=== PATIENT | female | born 1950 | race Caucasian/White ===

== ENCOUNTER 2017-01-10 11:13 | Inpatient (IN) ==
[2017-01-10] MEDS ORDERED: CLORAZEPATE 3.75 MG TABLET PO PRN (13:21)
[2017-01-10] MEDS ORDERED: DILTIAZEM 50 MG/10 ML VIAL IV ONE ×3 (13:23→20:25)
[2017-01-10] MEDS ORDERED: DEXTROSE 50% 25 GM/50 ML VIAL IV PRN (13:26)
[2017-01-10] MEDS ORDERED: GLUCAGON 1 MG VIAL IM PRN (13:26)
[2017-01-10] MEDS ORDERED: ENOXAPARIN 30 MG/0.3 ML SYRINGE SUBCUT SCH (13:30)
[2017-01-10 13:52] LABS: Basophils % 0.1 % (0.0-0.8); Eosinophils % 0.1 % (0.00-10.9); Hematocrit 33.8 VOL% (35.7-47.0); Hemoglobin 11.1 GM/DL (12.0-16.0); Immature Granulocytes % 0.4 %; Immature Granulocytes Absolute 0.03 #; Lymphocytes # 1.4 10*3/uL (1.4-4.0); Lymphocytes % 19.4 % (21.3-54.2); Mean Corpuscular HGB Conc 32.8 GM/DL (32-36); Mean Corpuscular Hemoglobin 31 PG (27-34); Mean Corpuscular Volume 94.9 FL (87-102); Mean Platelet Volume 13.8 FL (9.6-12.0); Monocytes # 1.4 10*3/uL (0.11-0.8); Monocytes % 19.8 % (1.7-12.7); Neutrophils # 4.3 10*3/uL (1.4-7.4); Neutrophils % 60.2 % (38.7-73.9); Platelet Count 132 T/CUMM (130-400); Red Blood Count 3.56 MC/CUMM (3.8-5.5); Red Cell Distribution Width 15.6 % (9.3-17.3); White Blood Count 7.2 T/CUMM (4-12)
--- NOTE | 2017-01-10 14:08 | EKG Report ---
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
[2017-01-10 14:09] LABS: Calcium 8.6 MG/DL (8.5-10.1); Magnesium 2.1 MG/DL (1.8-2.4); Osmolality,Calculated 296.5 MOS/KG (273-304); Potassium 4.4 MMOL/L (3.5-5.1)
[2017-01-10 14:13] LABS: Troponin I Only 0.142 NG/ML (0.00-0.045)
[2017-01-10 14:18] LABS: T4 (Thyroxine) 8.4 UG/DL (4.7-13.3); Thyroid Stimulating Hormone 0.928 uIU/ml (0.358-3.74)
--- NOTE | 2017-01-10 14:23 | XRay Report ---
XR chest 2V Date: 01/10/2017 1:14 PM History: Shortness of breath Comparison: 01/02/2017 Technique: PA and lateral chest Findings: The heart remains minimally to moderately enlarged with left ventricular prominence and uncoiling of the aorta. Chronic scarring in the lungs with stable mediastinum. Degenerative changes are noted. Impression: Stable cardiomegaly with no acute cardiopulmonary pathology identified. PROCEDURE INTERPRETED AT [facility] DEPARTMENT OF RADIOLOGY Final Report Signed by: Dr. Antonia Rubin
[2017-01-10] MEDS ORDERED: ENOXAPARIN 120 MG/0.8 ML SYRINGE SUBCUT SCH (15:00)
[2017-01-10 15:01] LABS: Lymphocytes 18 % (20-55); Platelet Estimate Decreased; Segmented Neutrophils 66 % (50-85); Total Cells Counted 100
[2017-01-10 15:02] LABS: Hypochromasia Slight
--- NOTE | 2017-01-10 16:08 | Family Practice History&Phys ---
Assessment and Plan (1) Atrial fibrillation with rapid ventricular response Status: Acute Assessment and plan: 01/10/2017 admit placed on Cardizem. Get a cardiology consult DVT prophylaxis Current Visit: Yes (2) Shortness of breath Status: Acute Assessment and plan: 01/10/2017. This is mainly with exertion. Will monitor closely O2 as needed Current Visit: Yes (3) History of CHF (congestive heart failure) Status: Acute Assessment and plan: 01/10/2017: No deepti congestive heart failure at this time Current Visit: Yes (4) Chronic hypertension Status: Acute Current Visit: Yes (5) Type 2 diabetes mellitus Status: Acute Assessment and plan: 01/10/2017: Place on sliding scale insulin start regular medicines as able Current Visit: Yes (6) Obesity due to excess calories with serious comorbidity Status: Acute Assessment and plan: 01/10/2017 this is long-standing chronic I doubt seriously she will change Current Visit: Yes (7) Hypercholesterolemia Status: Acute Assessment and plan: 01/10/2017 we will check lipid status Current Visit: Yes History of Present Illness Chief complaint: Weakness, fatigue; failed outpatient therapy History of present illness: Ms. Bain is a 66 year old female Is a pleasant lady known to me, a cardiac patient of Dr. Dr. Naidu's, came in today with weakness and lightheadedness. She was seen in the emergency room 1 week ago and tested positive for influenza and was given Tamiflu at that time. She states that for the last 4 or 5 days she has been quite weak and was concerned that her blood pressure was low causing this. Initial heart rate when she was checked and was 77 but when I checked it she was in atrial fibrillation and rate was about 130. She does not have any deepti shortness of breath but admits that she gets little shortness of breath only with exertion at this time. Her blood pressure was noted to be 100/64. EKG revealed AF with RVR. In addition her blood sugar was noted to be 320 at this time. I deferred lab in clinic to admitting her to the hospital. Her was with her and he was treated for the flu. Home Medications Medication Instructions Recorded Confirmed Type Aspirin [Ecotrin] 81 mg PO QAM 12/28/15 01/10/17 History Carvedilol [Coreg] 12.5 mg PO BID 12/28/15 01/10/17 History Folic Acid 0.8 mg PO QAM 12/28/15 01/10/17 History Furosemide Tab [Lasix Tab] 40 mg PO QAM 12/28/15 01/10/17 History Multivitamin [Multivitamins] 1 each PO QAM 12/28/15 01/10/17 History Spironolactone [Aldactone] 25 mg PO QAM 12/28/15 01/10/17 History Clorazepate [Tranxene] 3.75 mg PO BID PRN 01/02/17 01/10/17 History Magnesium Oxide [Magnesium] 400 mg PO BID 01/02/17 01/10/17 History Metformin HCl [Metformin HCl ER] 500 mg PO BID 01/02/17 01/10/17 History Pravastatin [Pravachol] 20 mg PO BEDTIME 01/02/17 01/10/17 History Sertraline [Zoloft] 50 mg PO DAILY 01/10/17 01/10/17 History Allergies Allergy/AdvReac Type Severity Reaction Status Date / Time No Known Allergies Allergy Verified 01/02/17 10:31 - Constitutional Constitutional: Present: fatigue, weakness - EENT Eyes: Absent: loss of vision Ears: Absent: decreased hearing Nose, mouth and throat: Absent: epistaxis, neck mass - Cardiovascular Cardiovascular: Present: dyspnea on exertion - Respiratory Respiratory: Absent: hemoptysis - Gastrointestinal Gastrointestinal: Absent: constipation, dysphagia - Genitourinary Genitourinary: Absent: urinary frequency - Musculoskeletal Musculoskeletal: Absent: arthralgias - Neurological Neurological: Absent: confusion, focal weakness - Psychiatric Psychiatric: Absent: anxiety, panic attacks - Endocrine Endocrine: Absent: cold intolerance Medical,Surgical,& Family Hx - Medical History Cardio: History of: Cardiac Dysrhythmia (afib), CHF, Hypertension Endocrine: History of: Diabetes Mellitus (NIDDM), Dyslipidemia Gastrointestinal: History of: GERD, Gastrointestinal Bleed, GI Problems ( diarrhea) - Surgical History Cardiac Surgeries: Patient Denies: Femoral-Popliteal Bypass Graft, Cardiac Catheterization, Cardiac Surgery, Carotid Endarterectomy, Internal Defibrillator, Vascular Access Devices HEENT Surgeries: Patient denies: Carotid Endarterectomy Abdominal Surgeries: Patient denies: Abdominal Surgery, Cholecystectomy, Colonoscopy, EGD, Splenectomy Reproductive Surgeries: Surgical HX of;: Hysterectomy - Family History Family History: Reports;: Family Diabetes, Family Hypertension - Social History Smoking Status: Never smoker Frequency of Alcohol Use: None Type of Drug Use: None Exam - Constitutional Vitals: Period Temp Pulse Resp BP Sys/Gama Pulse Ox Last 24 Hr 97.1 F 138-163 20-20 91-117/58-82 97-98 Exam: Generally a very obese female with a BMI of 45.5. She is alert and oriented and answers all questions appropriately and is very pleasant to talk with. Not having any headaches but does have some lightheadedness. No difficulty swallowing. No deepti chest pain. Mild shortness of breath particularly with exertion. No specific abdominal pain suprapubic swelling or leg swelling. HEENT neck supple trachea midline oropharynx negative, pupils equal reactive to light CV rate is fast with a rapid ventricular response. Lungs few basilar rales clear otherwise I do not appreciate any significant wheezing at present. Abdomen soft nondistended she has been having good bowel and bladder function Neurologically fully intact although she is very weak Results - Labs CBC & BMP: 01/10/17 13:38 01/10/17 13:38
[2017-01-10] MEDS: INSULIN REGULAR 100 UNIT/ML SUBCUT SCH ×2 (16:59→21:39)
[2017-01-10 17:08] LABS: Troponin I Only 0.147 NG/ML (0.00-0.045)
[2017-01-10] MEDS ORDERED: DIGOXIN 0.5 MG/2 ML AMP IV ONE (18:05)
[2017-01-10] MEDS ORDERED: ACETAMINOPHEN 325 MG TABLET PO PRN (18:31)
[2017-01-10] MEDS ORDERED: ONDANSETRON 4 MG/2 ML VIAL IV PRN (18:32)
--- NOTE | 2017-01-10 18:49 | Cardiology Consult Note ---
Assessment and Plan - Time spent with patient Time spent with patient: Greater than 30 minutes (due to assessment, plan, and documentation) (1) Atrial fibrillation with rapid ventricular response Status: Acute Assessment and plan: SEE PLAN OF CARE LISTED BELOW. Current Visit: Yes (2) Shortness of breath Status: Acute Assessment and plan: SEE PLAN OF CARE LISTED BELOW. Current Visit: Yes (3) History of CHF (congestive heart failure) Status: Chronic Assessment and plan: SEE PLAN OF CARE LISTED BELOW. Current Visit: Yes (4) Chronic hypertension Status: Chronic Assessment and plan: SEE PLAN OF CARE LISTED BELOW. Current Visit: Yes (5) Type 2 diabetes mellitus Status: Chronic Assessment and plan: SEE PLAN OF CARE LISTED BELOW. Current Visit: Yes (6) Obesity due to excess calories with serious comorbidity Status: Chronic Assessment and plan: SEE PLAN OF CARE LISTED BELOW. Current Visit: Yes (7) Hypercholesterolemia Status: Chronic Assessment and plan: SEE PLAN OF CARE LISTED BELOW. Current Visit: Yes (8) Cardiomyopathy Status: Chronic Assessment and plan: SEE PLAN OF CARE LISTED BELOW. Current Visit: Yes History of Present Illness - Data of Consult Patient: known to practice within the last 3 years (FOLLOWED BY DR. CARMEN) Consult date: 01/10/17 Requesting Physician: Daniel Schulz Primary care physician: Daniel Schulz - Consult Narrative Reason for consult: AFIB W/ RVR History of present illness: CARPENTER'S ASSISTANT: DR. CARMEN PCP: DR. DANIEL SCHULZ Ms. Bain is a 66 year old female with history of hypertension, type 2 diabetes, congestive heart failure, hypercholesterolemia, cardiomyopathy , hypomagnesemia, chronic renal insufficiency. Risk factors are significant for : Diabetes, hypertension, obesity, sedentary lifestyle. She is a lifelong non- smoker. Ms. Bain was directly admitted to the hospital today by Dr. Schulz with atrial fibrillation with rapid ventricular response. Ms. Bain tells me that last Saturday she was diagnosed with the flu. She was seen in the clinic and was hypotensive and subsequently sent to the emergency room. She has been taking Tamiflu and was seen in Dr. Schulz's clinic today for follow-up. She tells me that he planned to adjust her blood pressure medications due to her recent hypotension. She reports for the past 2-3 days she has felt more worn out and seems to be more easily fatigued and short of breath. She also has associated symptoms of lightheadedness. She denies recent chest pain, palpitations, dizziness, or syncope. At her follow-up appointment today, her heart rate was noted to be irregular when checked it was approximately 130. Blood pressure the clinic was 100/64. EKG was obtained and showed fibrillation with rapid ventricular response. We are consulted to see her due to new onset atrial fibrillation with rapid ventricular response. On admission, her initial troponin was 0.142 with normal CK-MB and CPK. Troponins have remained unremarkable. Her initial creatinine was 2.2. TSH and T4 were normal. H&H is stable, potassium is 4.4, magnesium 2.1. She was given a bolus of IV Cardizem and placed on IV Cardizem infusion. She has been borderline hypotensive at times. Her rates are remaining between 150 and 170 despite being on the maximum dose of IV Cardizem. We have also started her on IV digoxin despite her creatinine of 2.2. She does report previous history of bleeding internal hemorrhoids. We will cautiously start her on Lovenox 1 mg/kg every 24 hours. ASSESSMENT/PLAN: 1. ATRIAL FIBRILLATION WITH RVR - Continue IV Cardizem and IV Digoxin. If her rate does not improve within the next hour or two, the nurses have been instructed to notify the electric solderer industrial rehabilitation consultant. She may require loading with amiodarone and possible cardioversion tomorrow. We have started her on Lovenox 1mg/kg Q24h. 2. SHORTNESS OF BREATH - O2 PRN. This is largely due to her tachycardia. We will work on controlling her heart rate. 3. HISTORY OF CHF - Currently no overt signs of heart failure. Will check echocardiogram in the morning. 4. CHRONIC HYPERTENSION - Currently borderline hypotensive at times. Will monitor and adjust medications accordingly. 5. TYPE 2 DIABETES MELLITUS - She has been placed on accuchecks with sliding scale insulin. 6. OBESITY - Chronic. 7. HYPERCHOLESTEROLEMIA - Continue lipid-lowering agent. 8. CARDIOMYOPATHY - Most recent EF noted a couple of years ago 20-25%. We will repeat echocardiogram in the morning. CC: Daniel Schulz DO - Home Medications and Allergies Home Medications: Home Medications Medication Instructions Recorded Confirmed Type Aspirin [Ecotrin] 81 mg PO QAM 12/28/15 01/10/17 History Carvedilol [Coreg] 12.5 mg PO BID 12/28/15 01/10/17 History Folic Acid 0.8 mg PO QAM 12/28/15 01/10/17 History Furosemide Tab [Lasix Tab] 40 mg PO QAM 12/28/15 01/10/17 History Multivitamin [Multivitamins] 1 each PO QAM 12/28/15 01/10/17 History Spironolactone [Aldactone] 25 mg PO QAM 12/28/15 01/10/17 History Clorazepate [Tranxene] 3.75 mg PO BID PRN 01/02/17 01/10/17 History Magnesium Oxide [Magnesium] 400 mg PO BID 01/02/17 01/10/17 History Metformin HCl [Metformin HCl ER] 500 mg PO BID 01/02/17 01/10/17 History Pravastatin [Pravachol] 20 mg PO BEDTIME 01/02/17 01/10/17 History Sertraline [Zoloft] 50 mg PO DAILY 01/10/17 01/10/17 History Allergies/Adverse Reactions: Allergies Allergy/AdvReac Type Severity Reaction Status Date / Time No Known Allergies Allergy Verified 01/02/17 10:31 Review of systems: - Constitutional: Present: fatigue, malaise, As per HPI. Absent: anorexia, chills, daytime sleepiness, excessive sweating, fever(s), frequent falls, headache(s), increased appetite, lethargy, night sweats, stops breathing during sleep, weakness, weight gain, weight loss. - EENT Eyes: Present: As per HPI. Absent: blurry vision, diplopia, loss of vision Ears: Present: As per HPI. Absent: decreased hearing, ear discharge, ear pain Nose, mouth and throat: Present: As per HPI. Absent: dysphagia, epistaxis, headache(s), hoarseness, lip swelling, nasal congestion, neck mass, neck pain, sinus pressure, sore throat, throat swelling, tongue swelling, vertigo - Cardiovascular: Present: dyspnea, dyspnea on exertion, lightheadedness, as per HPI. Absent: chest pain at rest, chest pain with activity, edema, claudication, diaphoresis, radiating jaw, neck or arm pain, orthopnea, palpitations, PND - Respiratory: Present: dyspnea, dyspnea on exertion, wheezing, as per HPI. Absent: cough, hemoptysis, snoring, pain on inspiration - Gastrointestinal: Present: As per HPI. Absent: abdominal pain, bloating, change in bowel habits, constipation, diarrhea, heartburn, hematemesis, hematochezia, loose stools, melena, nausea, vomiting - Genitourinary: Present: As per HPI. Absent: difficulty urinating, dysuria, flank pain, hematuria, nocturia, urinary frequency, urinary incontinence - Musculoskeletal: Present: As per HPI. Absent: arthralgias, back pain, joint swelling, limited range of motion, muscle cramps, muscle weakness, myalgias - Neurological: Present: As per HPI. Absent: abnormal gait, abnormal speech, behavioral changes, confusion, convulsions, disequilibrium, dizziness, focal weakness, frequent falls, headache(s), memory loss, numbness, paresthesias, radicular pain, syncope, tremor(s) - Psychiatric: Present: As per HPI. Absent: anxiety, confusion, depression, panic attacks - Endocrine: Present: fatigue, As per HPI. Absent: cold intolerance, heat intolerance, polydipsia, polyphagia - Hematologic/Lymphatic: Present: As per HPI. Absent: easy bleeding, easy bruising, lymphadenopathy Medical,Surgical,& Family Hx - Medical History Cardio: History of: Cardiac Dysrhythmia (afib), CHF, Hypertension Endocrine: History of: Diabetes Mellitus (NIDDM), Dyslipidemia Gastrointestinal: History of: GERD, Gastrointestinal Bleed, GI Problems ( diarrhea) - Surgical History Cardiac Surgeries: Patient Denies: Femoral-Popliteal Bypass Graft, Cardiac Catheterization, Cardiac Surgery, Carotid Endarterectomy, Internal Defibrillator, Vascular Access Devices HEENT Surgeries: Patient denies: Carotid Endarterectomy Abdominal Surgeries: Patient denies: Abdominal Surgery, Cholecystectomy, Colonoscopy, EGD, Splenectomy Reproductive Surgeries: Surgical HX of;: Hysterectomy - Family History Family History: Reports;: Family Diabetes, Family Hypertension - Social History Smoking Status: Never smoker Frequency of Alcohol Use: None Type of Drug Use: None Marital Status: Lives With:: Spouse Functional capacity: independent ambulation Physical Examination Vital Signs Temp Pulse Resp BP Pulse Ox 97.1 F L 163 H 20 91/58 97 01/10/17 12:27 01/10/17 12:27 01/10/17 12:27 01/10/17 12:27 01/10/17 12:27 Other: General appearance: Pleasant and cooperative. Obesity, mild respiratory distress. - Head Head exam: Present: normal inspection, normocephalic, atraumatic. Absent: hematoma, laceration - Eye Eye exam: Present: EOMI. Absent: conjunctival injection, nystagmus, periorbital swelling, scleral icterus, laceration to eyelids Pupils: Present: PERRL. Absent: constricted, dilated, fixed, irregular, unequal - ENT ENT exam: Present: normal exam, normal external ear exam - Neck Neck exam: Present: normal inspection. Absent: lymphadenopathy, meningismus, tenderness, thyromegaly - Respiratory Respiratory exam: Present: Scattered wheezes more in the left lobes, otherwise clear to auscultation bilaterally. Absent: accessory muscle use, chest wall tenderness - Cardiovascular Cardiovascular exam: Present: Irregular rate and rhythm, tachycardia. Absent: carotid bruit, gallop, JVD, rubs, murmur - GI/Abdominal GI/Abdominal exam: Present: normal bowel sounds, soft. Absent: distended, firm , guarding, hernia, mass, tenderness, rebound. - Extremities Exam Extremities exam: Present: normal inspection, normal capillary refill. Upper extremity pulses 2+. Lower extremity pulses 2+. Absent: calf tenderness, edema -Musculoskeletal Exam Musculoskeletal: Present: No Fluid Collection, No Pain, Normal Range of Motion - Back Exam Back exam: Present: normal inspection. Absent: muscle spasm, vertebral tenderness - Neurological Exam Neurological exam: Present: alert, oriented X3, grossly intact without resting or essential tremor - Psychiatric Psychiatric exam: Present: normal affect, normal mood - Skin Skin exam: Present: normal color, warm, dry, intact. Absent: cyanosis, diaphoretic, rash, urticaria Result/EKG - Labs CBC & BMP: 01/10/17 13:38 01/10/17 13:38 Lab Results: I have reviewed the past 24 hour labs Labs: Laboratory Results - last 24 hr 01/10/17 01/10/17 01/10/17 12:23 13:38 13:38 WBC RBC Hgb Hct MCV MCH MCHC RDW Plt Count MPV Neut % (Auto) Lymph % (Auto) [place] % (Auto) Eos % (Auto) Baso % (Auto) Neut # (Auto) Lymph # (Auto) [place] # (Auto) Eos # (Auto) Baso # (Auto) Total Counted Immature Gran % Nucleated RBC % Immature Gran # Segmented Neutrophils Lymphocytes Monocytes Nucleated RBCs # Platelet Estimate Hypochromasia Sodium 139 Potassium 4.4 Chloride 105 Carbon Dioxide 26 Anion Gap 12.4 BUN 44 H Creatinine 2.20 H GFR Calculation 28 BUN/Creatinine Ratio 20.00 Glucose 264 H POC Glucose 241 H Calculated Osmolality 296.5 Calcium 8.6 Magnesium 2.1 Total Creatine Kinase CK-MB (CK-2) Troponin I Thyroxine (T4) TSH 3rd Generation HCG Beta Subunit 6.0 H 01/10/17 01/10/17 01/10/17 13:38 13:38 13:38 WBC 7.2 RBC 3.56 L Hgb 11.1 L Hct 33.8 L MCV 94.9 MCH 31 MCHC 32.8 RDW 15.6 Plt Count 132 MPV 13.8 H Neut % (Auto) 60.2 Lymph % (Auto) 19.4 L [place] % (Auto) 19.8 H Eos % (Auto) 0.1 Baso % (Auto) 0.1 Neut # (Auto) 4.3 Lymph # (Auto) 1.4 [place] # (Auto) 1.4 H Eos # (Auto) 0.0 Baso # (Auto) 0.0 Total Counted 100 Immature Gran % 0.4 Nucleated RBC % 0.0 Immature Gran # 0.03 Segmented Neutrophils 66 Lymphocytes 18 L Monocytes 16 H Nucleated RBCs # 0.00 Platelet Estimate Decreased Hypochromasia Slight Sodium Potassium Chloride Carbon Dioxide Anion Gap BUN Creatinine GFR Calculation BUN/Creatinine Ratio Glucose POC Glucose Calculated Osmolality Calcium Magnesium Total Creatine Kinase 36 CK-MB (CK-2) < 1.0 Troponin I 0.142 H Thyroxine (T4) 8.4 TSH 3rd Generation 0.928 HCG Beta Subunit 01/10/17 01/10/17 16:03 16:13 WBC RBC Hgb Hct MCV MCH MCHC RDW Plt Count MPV Neut % (Auto) Lymph % (Auto) [place] % (Auto) Eos % (Auto) Baso % (Auto) Neut # (Auto) Lymph # (Auto) [place] # (Auto) Eos # (Auto) Baso # (Auto) Total Counted Immature Gran % Nucleated RBC % Immature Gran # Segmented Neutrophils Lymphocytes Monocytes Nucleated RBCs # Platelet Estimate Hypochromasia Sodium Potassium Chloride Carbon Dioxide Anion Gap BUN Creatinine GFR Calculation BUN/Creatinine Ratio Glucose POC Glucose 191 H Calculated Osmolality Calcium Magnesium Total Creatine Kinase 39 CK-MB (CK-2) < 1.0 Troponin I 0.147 H Thyroxine (T4) TSH 3rd Generation HCG Beta Subunit - EKG EKG results: interpreted by me EKG shows: atrial fibrillation (with rapid ventricular response)
[2017-01-10] MEDS ORDERED: AMIODARONE 150 MG/3 ML VIAL ONE (19:07)
[2017-01-10] MEDS ORDERED: FUROSEMIDE 40 MG/4 ML VIAL IV ONE (19:07)
[2017-01-10] MEDS ORDERED: AMIODARONE INJ 150 MG in DEXTROSE 5% 100 ML IV ONE (19:08)
[2017-01-10] MEDS ORDERED: AMIODARONE INJ 450 MG in DEXTROSE 5% 241 ML IV SCH (19:30)
--- NOTE | 2017-01-10 20:18 | EKG Report ---
Stationary ECG Study [facility] Test Date: 01/10/2017 8:17:44 PM Pat Name: SVEN YATES Department: Room: 122 Gender: F Lathe Set Up Person: ELADIO : 1950 Requested by: Clare Mart Order Number: [id number] Reading MD: DNAO ORNELAS Intervals [place] Rate: 157 P: 999 SC: 0 QRS: -47 QRSD: 170 T: 100 QT: 328 QTc: 416 Interpretive Statements ATRIAL FIBRILLATION WITH RAPID VENTRICULAR RESPONSE MARKED LEFT AXIS DEVIATION Left bundle branch block Electronically Signed On 01-13-17 15:29:40 CDT by DANO ORNELAS [id number]
[2017-01-10] MEDS ORDERED: ASPIRIN 325 MG TABLET ONE (20:23)
[2017-01-10] MEDS ORDERED: NITROGLYCERIN SL 0.4 MG TABLET SL ONE ×2 (20:24→20:58)
[2017-01-10] MEDS ORDERED: METOPROLOL TARTRATE 5 MG/5 ML VIAL IV ONE (20:32)
[2017-01-10] MEDS ORDERED: ASPIRIN 325 MG TABLET PO ONE (20:57)
--- NOTE | 2017-01-10 21:03 | XRay Report ---
XR chest 1V portable Indication: Chest pain. Comparison: Chest x-ray 01/10/2017 Technique: Portable AP chest was performed. Findings: Borderline cardiomegaly is stable. Central vascular prominence is likely accentuated by technique. Lungs are clear for degree of inspiration and AP technique. Bones and soft tissues demonstrate no evidence of acute pathology. Impression: 1. Stable borderline cardiomegaly. No evidence of active cardiopulmonary disease. 01/10/2017 8:59 PM PROCEDURE INTERPRETED AT [facility] DEPARTMENT OF RADIOLOGY Final Report Signed by: Dr. Marshal Padilla
--- NOTE | 2017-01-10 21:27 | Ultrasound Report ---
US venous doppler LE BI Indication: Shortness of breath. Clinical concern for venous thrombus. Comparison: None. Technique: Using a transcutaneous probe, grayscale, spectral Doppler, and color Doppler images of the bilateral lower extremity venous structures were captured and stored. Grayscale images prior to and following compression were obtained. Interrogated venous structures include the bilateral common femoral vein, superficial femoral vein (proximal, mid, and distal), and popliteal vein. Findings: There is no evidence of thrombus within the interrogated venous structures. the interrogated venous segments demonstrate presence of both color flow and spectral flow. Impression: 1. No evidence of venous thrombosis. 01/10/2017 9:22 PM PROCEDURE INTERPRETED AT [facility] DEPARTMENT OF RADIOLOGY Final Report Signed by: Dr. Marshal Padilla
[2017-01-10 21:31] LABS: Troponin I Only 0.222 NG/ML (0.00-0.045)
[2017-01-10] MEDS: CARVEDILOL 12.5 MG TABLET PO SCH (21:38)
[2017-01-10] MEDS: PRAVASTATIN 20 MG TABLET PO SCH (21:38)
[2017-01-10] MEDS: MAGNESIUM OXIDE 400 MG TABLET PO SCH (21:38)
[2017-01-10 23:21] LABS: Apearance,Urine Slightly Hazy (Clear); Bilirubin,Urine Negative (Negative); Blood, Urine Negative (Negative); Glucose,Urine (UA) 50 mg/dL (Negative); Ketones,Urine Negative (Negative); Nitrite,Urine Negative (Negative); Protein,Urine Negative; RBC,Urine 1 /HPF (0-4); Squamous Epithelial Cell,Urine Occasional /HPF (0-10); Urine Color Yellow (Yellow); Urine Specific Gravity 1.009 (1.001-1.035); Urine Urobilinogen < 2.0 EU/DL (0.2-1.0)
[2017-01-11] MEDS ORDERED: DIGOXIN 0.5 MG/2 ML AMP IV ONE (01:00)
[2017-01-11] MEDS: AMIODARONE INJ 450 MG in DEXTROSE 5% 241 ML IV SCH ×2 (02:26→19:01)
[2017-01-11 06:37] LABS: Basophils % 0.1 % (0.0-0.8); Hematocrit 32.5 VOL% (35.7-47.0); Hemoglobin 10.5 GM/DL (12.0-16.0); Immature Granulocytes % 0.3 %; Immature Granulocytes Absolute 0.02 #; Lymphocytes # 1.6 10*3/uL (1.4-4.0); Lymphocytes % 22.1 % (21.3-54.2); Mean Corpuscular HGB Conc 32.3 GM/DL (32-36); Mean Corpuscular Hemoglobin 31 PG (27-34); Mean Corpuscular Volume 94.5 FL (87-102); Mean Platelet Volume 15.2 FL (9.6-12.0); Monocytes # 1.8 10*3/uL (0.11-0.8); Monocytes % 25.9 % (1.7-12.7); NRBC # 0.02 10*3/uL; Neutrophils # 3.6 10*3/uL (1.4-7.4); Neutrophils % 51.6 % (38.7-73.9); Platelet Count 114 T/CUMM (130-400); Red Blood Count 3.44 MC/CUMM (3.8-5.5); Red Cell Distribution Width 15.8 % (9.3-17.3)
[2017-01-11 06:58] LABS: Calcium 8.8 MG/DL (8.5-10.1); Magnesium 1.9 MG/DL (1.8-2.4); Osmolality,Calculated 291.4 MOS/KG (273-304)
[2017-01-11 07:12] LABS: Risk Ratio 2.81; VLDL CHOLESTEROL 17.8 MG/DL
[2017-01-11 07:16] LABS: Band Neutrophils 1 % (0-10); Hypochromasia 1+; Lymphocytes 26 % (20-55); Platelet Estimate Decreased; Segmented Neutrophils 55 % (50-85); Total Cells Counted 100
--- NOTE | 2017-01-11 07:51 | Cardiology Progress Note ---
Assessment and Plan (1) Atrial fibrillation with rapid ventricular response Status: Acute Assessment and plan: 66-year-old female, history of cardiomyopathy, presenting with A. fib RVR CHF. NICM LVEF 20%. -AF/RVR. This did not respond to intensive rate control attempts with CCB,BB, digoxin and amiodarone. ECG does not suggest preexcitation. She is still in respiratory distress, on BIPAP. Adequately perfused. -We discussed risk/benefits of management options. We will proceed with MANOJ/ DCCV. AF is for unknown duration and she was not anticoagulated before. She has a chance she may need to stay on mech vent if develops resp failure. -Cont BiPAP for respiratory support. -Workup does not suggest PE or ACS. No significant thyroid issues or severe anemia. -continue full anticoagulation with GFR-adjusted LMWH -cont amiodarone, Coreg, digoxin. Avoid CCB, has underlying severe CMP Current Visit: Yes (2) Shortness of breath Status: Acute Current Visit: Yes (3) History of CHF (congestive heart failure) Status: Chronic Current Visit: Yes (4) Chronic hypertension Status: Chronic Current Visit: Yes (5) Type 2 diabetes mellitus Status: Chronic Current Visit: Yes (6) Cardiomyopathy Status: Chronic Current Visit: Yes Cardiology - PN: Subj Interval history: She is still in AF/RVR with HR around 150 bp. This was refractory to cardizem, digoxin, metoprolol and amiodarone drip so far. QRS morphology does not suggest preexcitation. She is still on BIPAP for respiratory distress. Exam (Progress Note) - Constitutional Vitals: Period Temp Pulse Resp BP Sys/Gama Pulse Ox Last 24 Hr 97.0 F-98.4 F 127-163 17-39 91-142/58-100 94-100 General appearance: normal weight, morbidly obese - Head Head exam: Present: normal inspection, normocephalic - Eye Eye exam: Absent: conjunctival injection Pupils: Absent: dilated - ENT ENT exam: Present: normal external ear exam - Neck Neck exam: Present: normal inspection - Respiratory Respiratory exam: Present: decreased breath sounds. Absent: wheezes - Cardiovascular Cardiovascular exam: Present: irregular rhythm, systolic murmur, tachycardia - GI/Abdominal GI/Abdominal exam: Present: normal bowel sounds. Absent: distended - Extremities Exam Extremities exam: Present: normal inspection, normal capillary refill. Absent: edema - Neurological Exam Neurological exam: Present: alert, oriented X3 - Psychiatric Psychiatric exam: Present: normal affect, normal mood - Skin Skin exam: Present: normal color, warm. Absent: cyanosis Result/EKG - Labs CBC & BMP: 01/11/17 05:21 01/11/17 05:21 Lab Results: I have reviewed the past 24 hour labs Labs: Laboratory Results - last 24 hr 01/10/17 01/10/17 01/10/17 12:23 13:38 13:38 WBC RBC Hgb Hct MCV MCH MCHC RDW Plt Count MPV Neut % (Auto) Lymph % (Auto) Andrew % (Auto) Eos % (Auto) Baso % (Auto) Neut # (Auto) Lymph # (Auto) [place] # (Auto) Eos # (Auto) Baso # (Auto) Total Counted Immature Gran % Nucleated RBC % Immature Gran # Segmented Neutrophils Band Neutrophils Lymphocytes Monocytes Nucleated RBCs # Platelet Estimate Hypochromasia D-Dimer, Quantitative Sodium 139 Potassium 4.4 Chloride 105 Carbon Dioxide 26 Anion Gap 12.4 BUN 44 H Creatinine 2.20 H GFR Calculation 28 BUN/Creatinine Ratio 20.00 Glucose 264 H POC Glucose 241 H Calculated Osmolality 296.5 Calcium 8.6 Magnesium 2.1 Total Creatine Kinase CK-MB (CK-2) Troponin I Triglycerides Cholesterol LDL Cholesterol VLDL Cholesterol HDL Cholesterol Heart Disease Risk Ratio Thyroxine (T4) TSH 3rd Generation HCG Beta Subunit 6.0 H Urine Color Urine Appearance Urine pH Ur Specific [place] Urine Protein Urine Glucose (UA) Urine Ketones Urine Blood Urine Nitrate Urine Bilirubin Urine Urobilinogen Urine Leukocytes Urine RBC Ur Squamous Epith Cells Ur Culture Indicated? 01/10/17 01/10/17 01/10/17 13:38 13:38 13:38 WBC 7.2 RBC 3.56 L Hgb 11.1 L Hct 33.8 L MCV 94.9 MCH 31 MCHC 32.8 RDW 15.6 Plt Count 132 MPV 13.8 H Neut % (Auto) 60.2 Lymph % (Auto) 19.4 L Andrew % (Auto) 19.8 H Eos % (Auto) 0.1 Baso % (Auto) 0.1 Neut # (Auto) 4.3 Lymph # (Auto) 1.4 Andrew # (Auto) 1.4 H Eos # (Auto) 0.0 Baso # (Auto) 0.0 Total Counted 100 Immature Gran % 0.4 Nucleated RBC % 0.0 Immature Gran # 0.03 Segmented Neutrophils 66 Band Neutrophils Lymphocytes 18 L Monocytes 16 H Nucleated RBCs # 0.00 Platelet Estimate Decreased Hypochromasia Slight D-Dimer, Quantitative Sodium Potassium Chloride Carbon Dioxide Anion Gap BUN Creatinine GFR Calculation BUN/Creatinine Ratio Glucose POC Glucose Calculated Osmolality Calcium Magnesium Total Creatine Kinase 36 CK-MB (CK-2) < 1.0 Troponin I 0.142 H Triglycerides Cholesterol LDL Cholesterol VLDL Cholesterol HDL Cholesterol Heart Disease Risk Ratio Thyroxine (T4) 8.4 TSH 3rd Generation 0.928 HCG Beta Subunit Urine Color Urine Appearance Urine pH Ur Specific [place] Urine Protein Urine Glucose (UA) Urine Ketones Urine Blood Urine Nitrate Urine Bilirubin Urine Urobilinogen Urine Leukocytes Urine RBC Ur Squamous Epith Cells Ur Culture Indicated? 01/10/17 01/10/17 01/10/17 16:03 16:13 19:05 WBC RBC Hgb Hct MCV MCH MCHC RDW Plt Count MPV Neut % (Auto) Lymph % (Auto) [place] % (Auto) Eos % (Auto) Baso % (Auto) Neut # (Auto) Lymph # (Auto) [place] # (Auto) Eos # (Auto) Baso # (Auto) Total Counted Immature Gran % Nucleated RBC % Immature Gran # Segmented Neutrophils Band Neutrophils Lymphocytes Monocytes Nucleated RBCs # Platelet Estimate Hypochromasia D-Dimer, Quantitative Sodium Potassium Chloride Carbon Dioxide Anion Gap BUN Creatinine GFR Calculation BUN/Creatinine Ratio Glucose POC Glucose 191 H 235 H Calculated Osmolality Calcium Magnesium Total Creatine Kinase 39 CK-MB (CK-2) < 1.0 Troponin I 0.147 H Triglycerides Cholesterol LDL Cholesterol VLDL Cholesterol HDL Cholesterol Heart Disease Risk Ratio Thyroxine (T4) TSH 3rd Generation HCG Beta Subunit Urine Color Urine Appearance Urine pH Ur Specific [place] Urine Protein Urine Glucose (UA) Urine Ketones Urine Blood Urine Nitrate Urine Bilirubin Urine Urobilinogen Urine Leukocytes Urine RBC Ur Squamous Epith Cells Ur Culture Indicated? 01/10/17 01/10/17 01/10/17 19:23 20:31 20:42 WBC RBC Hgb Hct MCV MCH MCHC RDW Plt Count MPV Neut % (Auto) Lymph % (Auto) [place] % (Auto) Eos % (Auto) Baso % (Auto) Neut # (Auto) Lymph # (Auto) [place] # (Auto) Eos # (Auto) Baso # (Auto) Total Counted Immature Gran % Nucleated RBC % Immature Gran # Segmented Neutrophils Band Neutrophils Lymphocytes Monocytes Nucleated RBCs # Platelet Estimate Hypochromasia D-Dimer, Quantitative 0.6 Sodium Potassium Chloride Carbon Dioxide Anion Gap BUN Creatinine GFR Calculation BUN/Creatinine Ratio Glucose POC Glucose Calculated Osmolality Calcium Magnesium Total Creatine Kinase 45 CK-MB (CK-2) < 1.0 Troponin I 0.222 H D Triglycerides Cholesterol LDL Cholesterol VLDL Cholesterol HDL Cholesterol Heart Disease Risk Ratio Thyroxine (T4) TSH 3rd Generation HCG Beta Subunit Urine Color Yellow Urine Appearance Slightly hazy Urine pH 5.0 Ur Specific [place] 1.009 Urine Protein Negative Urine Glucose (UA) 50 Urine Ketones Negative Urine Blood Negative Urine Nitrate Negative Urine Bilirubin Negative Urine Urobilinogen < 2.0 H Urine Leukocytes Negative Urine RBC 1 Ur Squamous Epith Cells Occasional Ur Culture Indicated? Not indicated 01/10/17 01/11/17 01/11/17 21:21 05:21 05:21 WBC 7.0 RBC 3.44 L Hgb 10.5 L Hct 32.5 L MCV 94.5 MCH 31 MCHC 32.3 RDW 15.8 Plt Count 114 L MPV 15.2 H Neut % (Auto) 51.6 Lymph % (Auto) 22.1 Andrew % (Auto) 25.9 H Eos % (Auto) 0.0 Baso % (Auto) 0.1 Neut # (Auto) 3.6 Lymph # (Auto) 1.6 Andrew # (Auto) 1.8 H Eos # (Auto) 0.0 Baso # (Auto) 0.0 Total Counted 100 Immature Gran % 0.3 Nucleated RBC % 0.3 Immature Gran # 0.02 Segmented Neutrophils 55 Band Neutrophils 1 Lymphocytes 26 Monocytes 18 H Nucleated RBCs # 0.02 Platelet Estimate Decreased Hypochromasia 1+ D-Dimer, Quantitative Sodium 140 Potassium 4.0 Chloride 104 Carbon Dioxide 24 Anion Gap 16.0 H BUN 40 H Creatinine 1.90 H GFR Calculation 34 BUN/Creatinine Ratio 21.00 H Glucose 159 H POC Glucose 230 H Calculated Osmolality 291.4 Calcium 8.8 Magnesium 1.9 Total Creatine Kinase CK-MB (CK-2) Troponin I Triglycerides Cholesterol LDL Cholesterol VLDL Cholesterol HDL Cholesterol Heart Disease Risk Ratio Thyroxine (T4) TSH 3rd Generation HCG Beta Subunit Urine Color Urine Appearance Urine pH Ur Specific [place] Urine Protein Urine Glucose (UA) Urine Ketones Urine Blood Urine Nitrate Urine Bilirubin Urine Urobilinogen Urine Leukocytes Urine RBC Ur Squamous Epith Cells Ur Culture Indicated? 01/11/17 01/11/17 05:21 07:07 WBC RBC Hgb Hct MCV MCH MCHC RDW Plt Count MPV Neut % (Auto) Lymph % (Auto) Andrew % (Auto) Eos % (Auto) Baso % (Auto) Neut # (Auto) Lymph # (Auto) Andrew # (Auto) Eos # (Auto) Baso # (Auto) Total Counted Immature Gran % Nucleated RBC % Immature Gran # Segmented Neutrophils Band Neutrophils Lymphocytes Monocytes Nucleated RBCs # Platelet Estimate Hypochromasia D-Dimer, Quantitative Sodium Potassium Chloride Carbon Dioxide Anion Gap BUN Creatinine GFR Calculation BUN/Creatinine Ratio Glucose POC Glucose 161 H Calculated Osmolality Calcium Magnesium Total Creatine Kinase CK-MB (CK-2) Troponin I Triglycerides 89 Cholesterol 118 LDL Cholesterol 66.0 VLDL Cholesterol 17.8 HDL Cholesterol 42 Heart Disease Risk Ratio 2.81 Thyroxine (T4) TSH 3rd Generation HCG Beta Subunit Urine Color Urine Appearance Urine pH Ur Specific [place] Urine Protein Urine Glucose (UA) Urine Ketones Urine Blood Urine Nitrate Urine Bilirubin Urine Urobilinogen Urine Leukocytes Urine RBC Ur Squamous Epith Cells Ur Culture Indicated? - EKG EKG results: interpreted by me
--- NOTE | 2017-01-11 08:27 | EKG Report ---
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
--- NOTE | 2017-01-11 08:36 | History and Physical Update ---
Sedation H&P Update - History and Physical H&P was reviewed, the patient examined and there: are no changes in the patients condition since last H&P was completed. - Dictation Physical: refer to H&P completed by admitting physician - Physical Exam Mental Status: alert and oriented Heart: other (irreg, tachy) Lung: clear to auscultation Abdomen: within normal limits Vitals: within normal limits - Sedation Plan for Sedation: other (sedation provided by anesthesia team) Patient Consent: Procedure disscussed with patient and patinet has consented., Risks and benefits were discussed with patient,including infection,, bleeding, injury to surrounding structures, seizure, temporary nerve, Patient understands and accepts potential risks/benefits and agrees to ASA Class: V Airway Assessment: Class IV: Only hard palate visible
[2017-01-11] MEDS ORDERED: LIDOCAINE 2% 5 ML VIAL ONE (08:39)
[2017-01-11] MEDS ORDERED: PROPOFOL 200 MG/20 ML VIAL IV ONE (08:39)
--- NOTE | 2017-01-11 08:53 | Electrophysiology Report ---
Date of Procedure:: 01/11/17 Pre-op diagnosis: AF/RVR, CHF Post-op diagnosis: same Procedure: PROCEDURAL SUMMARY MANOJ guided cardioversion. Successful procedure, no complications. Timeout was performed before the procedure. Sedation was provided by the anesthesia team. A MANOJ was performed to rule out intracardiac thrombi. See report separately. Briefly, no intracardiac thrombi were found. Synchronized DC cardioversion was performed with a 200 J biphasic shock. Sinus rhythm at 55 bpm restored. The patient woke up uneventfully from sedation. There were no complications. Plan: -continue amiodarone drip -continue anticoagulation -continue to monitor in the ICU Surgeon / Physician: Phoenix Perales
--- NOTE | 2017-01-11 08:59 | EKG Report ---
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
--- NOTE | 2017-01-11 09:53 | Anesthesia Post-Op ---
Anesthesia Post OP - Post Ansesthetic Evaluation Patient seen in post op: Yes Resp: within normal limits CV: within normal limits Mental: within normal limits Temp: within normal limits [id number]: within normal limits Nausea and Vomiting: within normal limits Pain: within normal limits
[2017-01-11] MEDS: INSULIN REGULAR 100 UNIT/ML SUBCUT SCH ×4 (09:56→20:34)
[2017-01-11] MEDS: CARVEDILOL 12.5 MG TABLET PO SCH ×2 (10:02→20:25)
[2017-01-11] MEDS: SPIRONOLACTONE 25 MG TABLET PO SCH (10:02)
[2017-01-11] MEDS: MULTIVITAMIN (CENTRUM) TABLET PO SCH (10:03)
[2017-01-11] MEDS: MAGNESIUM OXIDE 400 MG TABLET PO SCH ×2 (10:03→20:34)
[2017-01-11] MEDS: SERTRALINE 50 MG TABLET PO SCH (10:03)
[2017-01-11] MEDS: ASPIRIN EC 81 MG TABLET PO SCH (10:03)
[2017-01-11] MEDS: FOLIC ACID 0.4 MG TABLET PO SCH (10:03)
[2017-01-11] MEDS: ENOXAPARIN 120 MG/0.8 ML SYRINGE SUBCUT SCH ×2 (10:08→20:34)
[2017-01-11] MEDS: FUROSEMIDE 20 MG TABLET PO SCH (10:08)
[2017-01-11] MEDS: DIGOXIN 0.125 MG TABLET PO SCH (13:29)
[2017-01-11] MEDS: PRAVASTATIN 20 MG TABLET PO SCH (20:34)
--- NOTE | 2017-01-11 21:00 | ECHO Report ---
Odell Anila Exam Date: 01/11/2017 08:28 Referring Physician: Technologist: Yazmin Kay Age: 66 Ht (in): 63 Wt (lb): 264 Gender: F Exam Location: [facility] Echo Pre-op Dx: Atrial fibrillation, Cardioversion Post-op Dx: BP: 145 / 73 HR: 146 Rhythm: Sinus Technical Quality: Specimens Taken Devices Implanted Medications Complications Estimated Blood Loss Proc. Components IMPRESSIONS Left ventricle is mildly dilated, without hypertrophy, with severe global hypokinesis. Estimated left ventricular ejection fraction 15%. Mild biatrial enlargement. Mild mitral regurgitation. No intracardiac thrombi or masses. MEASUREMENTS (Male / Female) Normal Values FINDINGS Left Ventricle Left ventricle is mildly dilated, without hypertrophy, with severe global hypokinesis. Estimated left ventricular ejection fraction 15%. Right Ventricle The right ventricle is normal in size. Right Atrium Mild right atrial enlargement. Left Atrium Mild left atrial enlargement LA Appendage The left atrium appendage is normal in size, without thrombi. There is a prominent Coumadin bridge. IA Septum The interatrial septum is normal, no evidence of shunting with Doppler. Mitral Valve Structurally normal mitral valve, with mild regurgitation. Aortic Valve Structurally normal aortic valve, without stenosis, with trace insufficiency. Tricuspid Valve Structurally normal tricuspid valve, with mild insufficiency. Pulmonic Valve Structurally normal pulmonic valve, with trace insufficiency Pericardium No pericardial effusion Aorta The descending aorta is of normal diameter. Phoenix Perales (Electronically Signed) Final Date: 11 Jan 2017 20:59
--- NOTE | 2017-01-11 21:03 | ECHO Report ---
OdellAnila Exam Date: 01/11/2017 08:17 Referring Physician: Technologist: Yazmin Kay Age: 66 Ht (in): 63 Wt (lb): 264 Gender: F Exam Location: [facility] Echo Indications: Essential (primary) hypertension, Shortness of breath, Atrial fibrillation, Obesity, CHF, Diabetes, Cardiomyopathy, unspecified, Hypercholesterolemia BP: 145 / 73 HR: 146 Rhythm: Atrial fibrillation Technical Quality: Technically difficult study IMPRESSIONS Moderately dilated left ventricle, without hypertrophy, with severe global hypokinesis. Estimated left ventricular ejection fraction 15%. Biatrial enlargement. Mild mitral regurgitation. MEASUREMENTS (Male / Female) Normal Values 2D ECHO LV Diastolic Diameter PLAX 6.1 cm 4.2 - 5.9 / 3.9 - 5.3 cm LV Systolic Diameter PLAX 5.8 cm LV Fractional Shortening PLAX 6.0 % IVS Diastolic Thickness 1.3 cm 0.6 - 1.0 / 0.6 - 0.9 cm LVPW Diastolic Thickness 1.2 cm 0.6 - 1.0 / 0.6 - 0.9 cm RV Internal Dim ED PLAX 3.1 cm Aortic Root Diameter 2.6 cm LA Systolic Diameter LX 4.7 cm 3.0 - 4.0 / 2.7 - 3.8 cm DOPPLER TR Peak Velocity 181.0 cm/s TR Peak Gradient 13.1 mmHg FINDINGS Left Ventricle Moderately dilated left ventricle, without hypertrophy, with severe global hypokinesis. Estimated left ventricular ejection fraction 15%. Insufficient data to estimate diastolic function. Right Ventricle Normal large right ventricular size, with mildly decreased systolic function. Right Atrium Mild right atrial enlargement Left Atrium Moderate left atrial enlargement. Mitral Valve Structurally normal mitral valve, with mild regurgitation. Aortic Valve Structurally normal aortic valve, with trace insufficiency. Tricuspid Valve Structurally normal tricuspid valve. Mild tricuspid valve regurgitation. Tricuspid regurgitation velocities suggest a PAP of 23 mmHg. Pulmonic Valve Pulmonic valve not well visualized. Pericardium No pericardial effusion. Aorta Normal size aortic root and proximal ascending aorta. Phoenix Perales (Electronically Signed) Final Date: 11 Jan 2017 21:03
--- NOTE | 2017-01-11 22:10 | Family Practice Progress Note ---
Family Practice - PN: Subj Interval history: Pt. seen this afternoon. S/P electrocardioversion and doing "much better" now. H.R.. down to 70s, NSR and no sob at present. Is eating without difficulty and in good spirits. Continues to be on rhythmic controlling meds. Lab ok and bs sugar under fair control at present. monitor in CCu tonight. Exam (Progress Note) - Constitutional Vitals: Period Temp Pulse Resp BP Sys/Gama Pulse Ox Last 24 Hr 97 F-98 F 50-155 12-34 100-147/47-101 93-100 Exam: Generally alert and oriented and answers all questions, pleasant andfeeling better HEENT neck supple trachea midline oropharynx negative, pupils equal reactive to light CV rate regular and sinus Lungs few basilar rales clear otherwise I do not appreciate any significant wheezing at present.no SOB at present Abdomen soft nondistended she has been having good bowel and bladder function Neurologically fully intact although she is very weak Results - Labs CBC & BMP: 01/11/17 05:21 01/11/17 05:21 Assessment and Plan (1) Atrial fibrillation with rapid ventricular response Status: Resolved Assessment and plan: 01/10/2017 admit placed on Cardizem. Get a cardiology consult DVT prophylaxis Current Visit: Yes (2) Shortness of breath Status: Resolved Assessment and plan: 01/10/2017. This is mainly with exertion. Will monitor closely O2 as needed Current Visit: Yes (3) History of CHF (congestive heart failure) Status: Chronic Assessment and plan: 01/10/2017: No deepti congestive heart failure at this time Current Visit: Yes (4) Chronic hypertension Status: Chronic Current Visit: Yes (5) Type 2 diabetes mellitus Status: Chronic Assessment and plan: 01/10/2017: Place on sliding scale insulin start regular medicines as able Current Visit: Yes (6) Obesity due to excess calories with serious comorbidity Status: Chronic Assessment and plan: 01/10/2017 this is long-standing chronic I doubt seriously she will change Current Visit: Yes (7) Hypercholesterolemia Status: Chronic Assessment and plan: 01/10/2017 we will check lipid status Current Visit: Yes
[2017-01-12 04:28] LABS: Basophils % 0.5 % (0.0-0.8); Eosinophils # 0.1 10*3/uL (0.0-0.87); Eosinophils % 1.2 % (0.00-10.9); Hematocrit 32.6 VOL% (35.7-47.0); Hemoglobin 10.6 GM/DL (12.0-16.0); Immature Granulocytes % 0.5 %; Immature Granulocytes Absolute 0.02 #; Lymphocytes # 1.3 10*3/uL (1.4-4.0); Lymphocytes % 30.4 % (21.3-54.2); Mean Corpuscular HGB Conc 32.5 GM/DL (32-36); Mean Corpuscular Hemoglobin 31 PG (27-34); Mean Corpuscular Volume 95.6 FL (87-102); Mean Platelet Volume 14.1 FL (9.6-12.0); Monocytes # 0.9 10*3/uL (0.11-0.8); Monocytes % 22.1 % (1.7-12.7); Neutrophils # 1.9 10*3/uL (1.4-7.4); Neutrophils % 45.3 % (38.7-73.9); Platelet Count 111 T/CUMM (130-400); Red Blood Count 3.41 MC/CUMM (3.8-5.5); Red Cell Distribution Width 15.6 % (9.3-17.3); White Blood Count 4.1 T/CUMM (4-12)
[2017-01-12 04:48] LABS: Calcium 8.8 MG/DL (8.5-10.1); Osmolality,Calculated 290.3 MOS/KG (273-304); Potassium 4.1 MMOL/L (3.5-5.1)
[2017-01-12 05:24] LABS: Hypochromasia 1+; Lymphocytes 33 % (20-55); Segmented Neutrophils 45 % (50-85); Total Cells Counted 100
[2017-01-12 05:25] LABS: Microcytosis Slight; Platelet Estimate Adequate
--- NOTE | 2017-01-12 06:58 | Family Practice Progress Note ---
Family Practice - PN: Subj Interval history: Patient is doing well this morning and is maintaining a normal sinus rhythm after cardioversion yesterday. She denies any chest pain or shortness of breath. Repeat chemistries this morning show a reduced GFR but her magnesium and electrolytes are normal. She is doing well and can be discharged home when cardiology agrees. Exam (Progress Note) - Constitutional Vitals: Period Temp Pulse Resp BP Sys/Gama Pulse Ox Last 24 Hr 97 F-98 F 50-146 12-23 84-147/47-101 91-100 Exam: Objective a pleasant white female no acute distress. She is sleeping soundly and has no dyspnea. She is in normal sinus rhythm on the monitor. Cardiovascular: Heart rates regular without murmurs or gallops. Respiratory: The lungs are clear to auscultation bilaterally. Extremities: There is no calf swelling or tenderness. Results - Labs CBC & BMP: 01/12/17 03:46 01/12/17 03:46 Lab Results: I have reviewed the past 24 hour labs Assessment and Plan (1) Atrial fibrillation with rapid ventricular response Status: Resolved Assessment and plan: 01/12/2017: Patient is maintaining a normal sinus rhythm. Will discharge home when cardiology agrees. Current Visit: Yes
--- NOTE | 2017-01-12 08:54 | Cardiology Progress Note ---
Assessment and Plan (1) Atrial fibrillation with rapid ventricular response Status: Resolved Assessment and plan: 66-year-old female, history of cardiomyopathy, presenting with A. fib RVR CHF. NICM LVEF 20%. -AF/RVR. Remained in sinus rhythm after cardioversion. -Switch amiodarone to p.o. 200 mg twice daily. Plan to decrease to 200 mg daily a week later. -Continue anticoagulation, switch Lovenox to Eliquis 5 mg twice daily. -Decrease Coreg to 6.25 mg twice daily, was hypotensive. This may improve, as the IV amiodarone was discontinued. -Start lisinopril 2.5 mg daily. -Continue Aldactone. -Severe cardiomyopathy, left bundle branch block. She will be a candidate for [employer]. -Workup does not suggest PE or ACS. No significant thyroid issues or severe anemia. Current Visit: Yes (2) Shortness of breath Status: Resolved Current Visit: Yes (3) History of CHF (congestive heart failure) Status: Chronic Current Visit: Yes (4) Chronic hypertension Status: Chronic Current Visit: Yes (5) Type 2 diabetes mellitus Status: Chronic Current Visit: Yes (6) Cardiomyopathy Status: Chronic Current Visit: Yes Cardiology - PN: Subj Interval history: She is feeling much better. Remained in sinus rhythm, sinus bradycardia. Coreg was held as she was borderline hypotensive. Now recovered. Exam (Progress Note) - Constitutional Vitals: Period Temp Pulse Resp BP Sys/Gama Pulse Ox Last 24 Hr 97 F-98 F 50-67 12-23 84-147/47-87 91-100 General appearance: normal weight, morbidly obese - Head Head exam: Present: normal inspection, normocephalic - Eye Eye exam: Absent: conjunctival injection Pupils: Absent: dilated - ENT ENT exam: Present: normal external ear exam - Neck Neck exam: Present: normal inspection - Respiratory Respiratory exam: Present: clear to auscultation bilaterally - Cardiovascular Cardiovascular exam: Present: bradycardia, systolic murmur - GI/Abdominal GI/Abdominal exam: Present: normal bowel sounds. Absent: distended - Extremities Exam Extremities exam: Present: normal inspection, normal capillary refill - Neurological Exam Neurological exam: Present: alert, oriented X3 - Psychiatric Psychiatric exam: Present: normal affect, normal mood - Skin Skin exam: Present: normal color, warm. Absent: cyanosis Result/EKG - Labs CBC & BMP: 05/27/17 03:46 01/12/17 03:46 Lab Results: I have reviewed the past 24 hour labs Labs: Laboratory Results - last 24 hr 01/11/17 01/11/17 01/11/17 11:18 16:15 20:23 WBC RBC Hgb Hct MCV MCH MCHC RDW Plt Count MPV Neut % (Auto) Lymph % (Auto) [place] % (Auto) Eos % (Auto) Baso % (Auto) Neut # (Auto) Lymph # (Auto) [place] # (Auto) Eos # (Auto) Baso # (Auto) Total Counted Immature Gran % Nucleated RBC % Immature Gran # Segmented Neutrophils Lymphocytes Monocytes Nucleated RBCs # Platelet Estimate Hypochromasia Microcytosis Sodium Potassium Chloride Carbon Dioxide Anion Gap BUN Creatinine GFR Calculation BUN/Creatinine Ratio Glucose POC Glucose 138 H 143 H 204 H Calculated Osmolality Calcium Magnesium 01/12/17 01/12/17 01/12/17 03:46 03:46 07:15 WBC 4.1 D RBC 3.41 L Hgb 10.6 L Hct 32.6 L MCV 95.6 MCH 31 MCHC 32.5 RDW 15.6 Plt Count 111 L MPV 14.1 H Neut % (Auto) 45.3 Lymph % (Auto) 30.4 [place] % (Auto) 22.1 H Eos % (Auto) 1.2 Baso % (Auto) 0.5 Neut # (Auto) 1.9 Lymph # (Auto) 1.3 L [place] # (Auto) 0.9 H Eos # (Auto) 0.1 Baso # (Auto) 0.0 Total Counted 100 Immature Gran % 0.5 Nucleated RBC % 0.0 Immature Gran # 0.02 Segmented Neutrophils 45 L Lymphocytes 33 Monocytes 22 H Nucleated RBCs # 0.00 Platelet Estimate Adequate Hypochromasia 1+ Microcytosis Slight Sodium 141 Potassium 4.1 Chloride 105 Carbon Dioxide 26 Anion Gap 14.1 BUN 37 H Creatinine 1.70 H GFR Calculation 39 BUN/Creatinine Ratio 21.00 H Glucose 116 H POC Glucose 135 H Calculated Osmolality 290.3 Calcium 8.8 Magnesium 2.0 - EKG EKG results: interpreted by me
[2017-01-12] MEDS: INSULIN REGULAR 100 UNIT/ML SUBCUT SCH ×4 (09:35→20:45)
[2017-01-12] MEDS: APIXABAN 5 MG TABLET PO SCH ×2 (09:44→20:44)
[2017-01-12] MEDS: LISINOPRIL 2.5 MG TABLET PO SCH (09:44)
[2017-01-12] MEDS: SERTRALINE 50 MG TABLET PO SCH (09:45)
[2017-01-12] MEDS: FUROSEMIDE 20 MG TABLET PO SCH (09:45)
[2017-01-12] MEDS: FOLIC ACID 0.4 MG TABLET PO SCH (09:45)
[2017-01-12] MEDS: MULTIVITAMIN (CENTRUM) TABLET PO SCH (09:45)
[2017-01-12] MEDS: MAGNESIUM OXIDE 400 MG TABLET PO SCH ×2 (09:45→20:42)
[2017-01-12] MEDS: SPIRONOLACTONE 25 MG TABLET PO SCH (09:45)
[2017-01-12] MEDS: ASPIRIN EC 81 MG TABLET PO SCH (09:45)
[2017-01-12] MEDS: AMIODARONE 200 MG TABLET PO SCH ×2 (09:47→20:42)
[2017-01-12] MEDS: CARVEDILOL 6.25 MG TABLET PO SCH ×2 (09:47→20:45)
[2017-01-12] MEDS: DIGOXIN 0.125 MG TABLET PO SCH (13:07)
[2017-01-12] MEDS: AMIODARONE INJ 450 MG in DEXTROSE 5% 241 ML IV SCH (14:35)
[2017-01-12] MEDS: ENOXAPARIN 120 MG/0.8 ML SYRINGE SUBCUT SCH (14:35)
[2017-01-12] MEDS: PRAVASTATIN 20 MG TABLET PO SCH (20:45)
[2017-01-13 05:20] LABS: Basophils % 0.3 % (0.0-0.8); Eosinophils # 0.1 10*3/uL (0.0-0.87); Eosinophils % 2.3 % (0.00-10.9); Hematocrit 34.1 VOL% (35.7-47.0); Hemoglobin 11.1 GM/DL (12.0-16.0); Immature Granulocytes % 0.5 %; Immature Granulocytes Absolute 0.02 #; Lymphocytes # 1.3 10*3/uL (1.4-4.0); Lymphocytes % 32.6 % (21.3-54.2); Mean Corpuscular HGB Conc 32.6 GM/DL (32-36); Mean Corpuscular Hemoglobin 31 PG (27-34); Mean Corpuscular Volume 95.3 FL (87-102); Mean Platelet Volume 13.3 FL (9.6-12.0); Monocytes # 0.7 10*3/uL (0.11-0.8); Neutrophils # 1.8 10*3/uL (1.4-7.4); Neutrophils % 46.3 % (38.7-73.9); Platelet Count 181 T/CUMM (130-400); Red Blood Count 3.58 MC/CUMM (3.8-5.5); Red Cell Distribution Width 15.2 % (9.3-17.3); White Blood Count 3.8 T/CUMM (4-12)
[2017-01-13 05:48] LABS: Calcium 9.2 MG/DL (8.5-10.1)
[2017-01-13 05:49] LABS: Osmolality,Calculated 288.1 MOS/KG (273-304); Potassium 4.7 MMOL/L (3.5-5.1)
[2017-01-13 05:52] LABS: Band Neutrophils 1 % (0-10); Eosinophils 3 % (0-10); Lymphocytes 36 % (20-55); Platelet Estimate Normal; Segmented Neutrophils 49 % (50-85); Total Cells Counted 100
[2017-01-13 07:56] VITALS: BP 126/58
--- NOTE | 2017-01-13 08:07 | Family Practice Progress Note ---
Family Practice - PN: Subj Interval history: Patient states she is doing well had a good night last night. She denies any chest pain or palpitations this morning. She appears to be in a normal sinus rhythm on the monitor. Exam (Progress Note) - Constitutional Vitals: Period Temp Pulse Resp BP Sys/Gama Pulse Ox Last 24 Hr 96.9 F-98.4 F 52-61 16-22 108-140/53-68 94-97 Exam: Objective a pleasant white female no acute distress. She appears to maintain normal sinus rhythm on the monitor. Cardiovascular: Heart rates regular without murmurs or gallops. Respiratory: The lungs are clear to auscultation bilaterally. Extremities: There is no calf swelling or tenderness. Results - Labs CBC & BMP: 01/13/17 04:45 01/13/17 04:45 Lab Results: I have reviewed the past 24 hour labs Assessment and Plan (1) Atrial fibrillation with rapid ventricular response Status: Resolved Assessment and plan: 01/12/2017: Patient is maintaining a normal sinus rhythm. Will discharge home when cardiology agrees. 01/13/2017: Patient's maintaining normal sinus rhythm. Discharge when cardiology concurs. Current Visit: Yes
[2017-01-13] MEDS: MULTIVITAMIN (CENTRUM) TABLET PO SCH (08:25)
[2017-01-13] MEDS: SPIRONOLACTONE 25 MG TABLET PO SCH (08:26)
[2017-01-13] MEDS: FOLIC ACID 0.4 MG TABLET PO SCH (08:26)
[2017-01-13] MEDS: MAGNESIUM OXIDE 400 MG TABLET PO SCH (08:26)
[2017-01-13] MEDS: ASPIRIN EC 81 MG TABLET PO SCH (08:26)
[2017-01-13] MEDS: LISINOPRIL 2.5 MG TABLET PO SCH (08:26)
[2017-01-13] MEDS: CARVEDILOL 6.25 MG TABLET PO SCH (08:27)
[2017-01-13] MEDS: AMIODARONE 200 MG TABLET PO SCH (08:27)
[2017-01-13] MEDS: APIXABAN 5 MG TABLET PO SCH (08:27)
[2017-01-13] MEDS: SERTRALINE 50 MG TABLET PO SCH (08:27)
[2017-01-13] MEDS: FUROSEMIDE 20 MG TABLET PO SCH (08:27)
[2017-01-13] MEDS: INSULIN REGULAR 100 UNIT/ML SUBCUT SCH (08:28)
[2017-01-13] MEDS ORDERED: CARVEDILOL 3.125 MG TABLET PO SCH (10:45)
--- NOTE | 2017-01-13 10:48 | Discharge Summary ---
Hospital Course - Hospital Course Hospital Course: 66-year-old female, followed by dr. Naidu. History of cardiomyopathy, she presented with atrial fibrillation, RVR. This led to congestive heart failure, and is refractory to medical management. A MANOJ guided cardioversion was performed, sinus rhythm was restored. She was started on amiodarone load. Due to sinus bradycardia, her beta-song was decreased. Anticoagulation was started with Eliquis, there were no bleeding issues. Echo confirmed severely depressed ejection fraction. Her hemodynamics and CHF symptoms promptly improved, after cardioversion. She remained in sinus. -We will continue p.o. amiodarone dose, decrease to 200 mg daily in 5 days. -The Coreg was decreased due to sinus bradycardia after cardioversion and amiodarone load. -Lisinopril was limited due to borderline blood pressure. Continue 2.5 mg daily for now -She was also loaded with digoxin, continue 0.125 mg daily. -She will be discharged home today, follow-up with Dr. Naidu in 2 weeks. Recheck BMP/Mg. -She is a candidate for [employer]. LVEF 15%, LBBB QRS 160 ms, CHF NYHA II-III at baseline. We will pursue this, on an outpatient basis. Diagnosis - Discharge Diagnosis (1) Atrial fibrillation with rapid ventricular response Status: Resolved (2) Shortness of breath Status: Resolved (3) History of CHF (congestive heart failure) Status: Chronic (4) Chronic hypertension Status: Chronic (5) Type 2 diabetes mellitus Status: Chronic (6) Cardiomyopathy Status: Chronic Discharge Plan - Discharge Data Disposition: Disch To Home/Self Care Condition at Discharge: Stable Discharge Diet: advance to your usual diet Activity: resume usual activities as tolerated Hygiene: no restrictions Weight Bearing at Discharge: full weight bearing Driving: no restrictions Contact your physician if you experience:: fever over 101, Difficulty voiding, Redness or swelling, Nausea/Vomiting, Shortness of breath, Bleeding, pain uncontrolled by pain medications - Discharge Medications New Digoxin Tab [Lanoxin Tab] 0.125 mg PO DAILY@1300 #90 tablet Lisinopril [Prinivil] 2.5 mg PO DAILY #90 tablet Apixaban [Eliquis] 5 mg PO BID #180 tablet Amiodarone Tab [Cordarone Tab] 200 mg PO BID #180 tablet Carvedilol [Coreg] 3.125 mg PO BID #180 tablet Continue Spironolactone [Aldactone] 25 mg PO QAM Furosemide Tab [Lasix Tab] 40 mg PO QAM Aspirin [Ecotrin] 81 mg PO QAM Multivitamin [Multivitamins] 1 each PO QAM Folic Acid 0.8 mg PO QAM Clorazepate [Tranxene] 3.75 mg PO BID PRN PRN Reason: Anxiety Pravastatin [Pravachol] 20 mg PO BEDTIME Metformin HCl [Metformin HCl ER] 500 mg PO BID Magnesium Oxide [Magnesium] 400 mg PO BID Sertraline [Zoloft] 50 mg PO DAILY Discontinued Carvedilol [Coreg] 12.5 mg PO BID - Follow Up or Referral Follow Up: Tommie Naidu MD [Physician] - 2 Weeks (Check BMP/Mg) - Forms/Instructions Exam - Constitutional Vitals: Period Temp Pulse Resp BP Sys/Gama Pulse Ox Last 24 Hr 96.9 F-98.4 F 52-61 16-22 108-140/53-66 94-97 General appearance: no acute distress, morbidly obese - Head Head exam: Present: normal inspection, normocephalic - Eye Eye exam: Absent: conjunctival injection Pupils: Absent: dilated - ENT ENT exam: Present: normal external ear exam - Neck Neck exam: Present: normal inspection - Respiratory Respiratory exam: Present: clear to auscultation bilaterally - Cardiovascular Cardiovascular exam: Present: regular rate and rhythm, systolic murmur - GI/Abdominal GI/Abdominal exam: Present: normal bowel sounds - Extremities Exam Extremities exam: Present: normal inspection, normal capillary refill. Absent: edema - Back Exam Back exam: Present: normal inspection - Neurological Exam Neurological exam: Present: alert, oriented X3 - Psychiatric Psychiatric exam: Present: normal affect, normal mood - Skin Skin exam: Present: normal color, warm. Absent: cyanosis Discharge Results Procedures and tests throughout hospitalization: Pending Orders 01/14/17 04:00 BMP w/ Mg [Basic Metabolic Panel w/Mg] IN AM CBC [Comp Blood Count Auto Diff] IN AM Labs on day of discharge: Labs from last 24 hours 01/13/17 01/13/17 01/13/17 07:12 04:45 04:45 WBC 3.8 L RBC 3.58 L Hgb 11.1 L Hct 34.1 L MCV 95.3 MCH 31 MCHC 32.6 RDW 15.2 Plt Count 181 D MPV 13.3 H Neut % (Auto) 46.3 Lymph % (Auto) 32.6 [place] % (Auto) 18.0 H Eos % (Auto) 2.3 Baso % (Auto) 0.3 Neut # (Auto) 1.8 Lymph # (Auto) 1.3 L [place] # (Auto) 0.7 Eos # (Auto) 0.1 Baso # (Auto) 0.0 Total Counted 100 Immature Gran % 0.5 Nucleated RBC % 0.0 Immature Gran # 0.02 Segmented Neutrophils 49 L Band Neutrophils 1 Lymphocytes 36 Monocytes 9 Eosinophils 3 Basophils 2.0 H Nucleated RBCs # 0.00 Platelet Estimate Normal Pappenheimer Bodies Corporate Administrative Assistant Sodium 142 Potassium 4.7 Chloride 105 Carbon Dioxide 29 Anion Gap 12.7 BUN 28 H Creatinine 1.50 H GFR Calculation 45 BUN/Creatinine Ratio 18.00 Glucose 99 POC Glucose 122 H Calculated Osmolality 288.1 Calcium 9.2 Magnesium 2.0 01/12/17 01/12/17 01/12/17 19:29 16:25 11:18 WBC RBC Hgb Hct MCV MCH MCHC RDW Plt Count MPV Neut % (Auto) Lymph % (Auto) [place] % (Auto) Eos % (Auto) Baso % (Auto) Neut # (Auto) Lymph # (Auto) [place] # (Auto) Eos # (Auto) Baso # (Auto) Total Counted Immature Gran % Nucleated RBC % Immature Gran # Segmented Neutrophils Band Neutrophils Lymphocytes Monocytes Eosinophils Basophils Nucleated RBCs # Platelet Estimate Pappenheimer Bodies Sodium Potassium Chloride Carbon Dioxide Anion Gap BUN Creatinine GFR Calculation BUN/Creatinine Ratio Glucose POC Glucose 253 H 186 H 187 H Calculated Osmolality Calcium Magnesium - Imaging and Cardiology Cardiology Procedure: image reviewed by me, report reviewed by me DS: Provider Date of admission: 01/10/17 16:20 Primary care physician: Jed Venegas DO Attending physician on admission: Jed Venegas DO Consults: 01/10/17 13:10 Consult to Case Mgmt/Social Srvs [CONS] Routine Reason for Case Mgmt/Social Srvs: Discharge Planning Consult to [facility], Educator [CONS] Routine Reason for Accounts Receivable Supervisor: Diabetes Education 01/10/17 13:11 Consult to Physician [CONS] Routine Comment: new onset A-Fib Consulting Provider: Cardiology - [facility] Consult to Specialist Group: Cardiology Person Notified: RALEIGH Date Notified: 01/10/17 Time Notified: 13:45 01/11/17 07:47 Consult to Anesthesiology [CONS] Routine Consulting Provider: Reason for Anesthesiology: Pre-op Clearance Discharging clinician: Phoenix Perales MD Expected date of discharge: 01/13/17
--- NOTE | 2017-01-15 12:49 | Physician Query Form ---
CLICK EDIT DOCUMENT TO SELECT QUERY ANSWER --> OK --> SIGN Sofie Padilla RN, CCDS Certified Clinical Plan Manager W) [phone] (f) [phone] [email or web address] PROVIDERS: Make your selection(s) from the choices in EACH section by typing an "x" and enter comments in the comment section. Please use your independent medical judgment in providing your response. This request does not imply that any particular answer is desired or expected. CLINICAL INDICATORS: (Providers should not edit this section) The medical record indicates that the patient was admitted with AF, creatinine of 2.20 on admission, GFR of 28# and the patient has a history of LVEF 20%. Clarify which of the following most accurately represents the patient's renal status: ( ) Acute kidney injury (non-traumatic) ( ) Acute renal failure ( ) Acute renal failure with underlying Chronic Kidney Disease (CKD) - please provide stage below ( ) Acute renal failure with pathological renal lesion ( ) Acute renal failure with necrosis ( ) tubular ( ) medullary ( ) cortical ( ) CKD - please provide stage below ( ) End Stage Renal Disease ( ) Acute interstitial nephritis ( ) Hepatorenal syndrome ( ) Other, please specify: ( ) Clinically unable to determine Chronic Kidney Disease Stages Source: National Kidney Disease Foundation ( ) Stage I (eGFR > or = 90) ( ) Stage II (eGFR 60 - 89) ( ) Stage III (eGFR 30 - 59) ( ) Stage IV (eGFR 15 - 29) ( ) Stage V (eGFR < 15 or dialysis) COMMENTS: PLEASE ALSO DOCUMENT RESPONSE IN PROGRESS NOTES AND/OR DISCHARGE SUMMARY Use of terms such as suspected, likely, or probable (associated with a specific diagnosis that is being evaluated, monitored, or treated as if it exists) are acceptable and can be restated in the discharge summary if not ruled out. MTDD
--- NOTE | 2017-01-15 12:50 | Physician Query Form ---
CLICK EDIT DOCUMENT TO SELECT QUERY ANSWER --> OK --> SIGN Sofie Padilla RN, CCDS Certified Clinical Hand Tennis Ball Coverer W) [phone] (f) [phone] [email or web address] PROVIDERS: Make your selection(s) from the choices in EACH section by typing an "x" and enter comments in the comment section. Please use your independent medical judgment in providing your response. This request does not imply that any particular answer is desired or expected. CLINICAL INDICATORS: (Providers should not edit this section) The medical record indicates that the patient was admitted with AF, on the 25th : "more respiratory distress", "more short of breath" and the patient was treated with "BiPAP for respiratory support". If possible, please further clarify the type and acuity of respiratory diagnosis : ACUITY: ( ) Acute ( ) Chronic ( ) Acute on Chronic TYPE: ( ) Respiratory failure with hypoxia ( ) Respiratory failure with hypercapnia ( ) Respiratory Arrest ( ) Postprocedural/postoperative respiratory failure ( ) Respiratory Insufficiency ( ) ARDS (Adult/Acute Respiratory Distress Syndrome) ( ) Other, please specify: ( ) Clinically unable to determine Recognized criteria for respiratory failure PH <7.35 or >7.45 PO2 <60 PCO2 >50 RR >24 O2 Sat <90% on RA or <95% on O2 Use of accessory muscles Unable to speak in full sentences Intubation is not required COMMENTS: PLEASE ALSO DOCUMENT RESPONSE IN PROGRESS NOTES AND/OR DISCHARGE SUMMARY Use of terms such as suspected, likely, or probable (associated with a specific diagnosis that is being evaluated, monitored, or treated as if it exists) are acceptable and can be restated in the discharge summary if not ruled out. MTDD
--- NOTE | 2017-01-15 12:51 | Physician Query Form ---
CLICK EDIT DOCUMENT TO SELECT QUERY ANSWER --> OK --> SIGN Sofie Padilla RN, CCDS Certified Clinical Instrumentation And Controls Technician W) [phone] (f) [phone] [email or web address] PROVIDERS: Make your selection(s) from the choices in EACH section by typing an "x" and enter comments in the comment section. Please use your independent medical judgment in providing your response. This request does not imply that any particular answer is desired or expected. CLINICAL INDICATORS: (Providers should not edit this section) The medical record indicates that the patient was admitted with AF, history of chronic CHF, NICM LVEF 20% and the patient was treated with IV/PO Lasix. Please provide further specificity regarding CHF. ACUITY: ( ) Acute ( ) Chronic (x) Acute on Chronic ( ) Clinically unable to determine TYPE: ( ) Systolic (HFrEF - heart failure with reduced systolic function/EF) ( ) Diastolic (HFpEF - heart failure with preserved systolic function/EF) (x) Combined Systolic/Diastolic ( ) Other, please specify: ( ) Clinically unable to determine ( ) The patient does NOT have CHF COMMENTS: PLEASE ALSO DOCUMENT RESPONSE IN PROGRESS NOTES AND/OR DISCHARGE SUMMARY Use of terms such as suspected, likely, or probable (associated with a specific diagnosis that is being evaluated, monitored, or treated as if it exists) are acceptable and can be restated in the discharge summary if not ruled out. MTDD
== END 2017-01-13 11:33 | disposition home or self-care (01) | DRG 308 ==
LOC: N.TELEN → N.CC 20:17 → N.TELES 01-12 14:27
PROVIDERS: ADMIT Family Medicine; ATTEND Family Medicine

== ENCOUNTER 2019-07-05 14:37 | Observation (INO) ==
[2019-07-05 16:01] LABS: Basophils % 0.3 % (0.0-0.8); Eosinophils # 0.1 10*3/uL (0.0-0.87); Eosinophils % 0.9 % (0.00-10.9); Hematocrit 36.2 VOL% (35.7-47.0); Immature Granulocytes % 2.1 %; Immature Granulocytes Absolute 0.18 #; Lymphocytes # 1.7 10*3/uL (1.4-4.0); Lymphocytes % 19.8 % (21.3-54.2); Mean Corpuscular HGB Conc 33.1 GM/DL (32-36); Mean Corpuscular Volume 94.3 FL (87-102); Mean Platelet Volume 12.7 FL (9.6-12.0); Monocytes % 22.9 % (1.7-12.7); Platelet Count 140 T/CUMM (130-400); Red Blood Count 3.84 MC/CUMM (3.8-5.5); Red Cell Distribution Width 15.8 % (9.3-17.3); White Blood Count 8.7 T/CUMM (4-12)
[2019-07-05 16:12] LABS: INR 3.4; Partial Thromboplastin Time 35.5 SECS (20.8-36.0)
[2019-07-05 16:17] LABS: PT Patient Result 36.4 SECS (9.6-12.2)
[2019-07-05 16:20] LABS: Albumin 3.5 G/DL (3.4-5.0); Bilirubin,Total 0.4 MG/DL (0.2-1.0); Calcium 9.4 MG/DL (8.5-10.1); Osmolality,Calculated 291.1 MOS/KG (273-304); Total Protein 7.6 G/DL (6.4-8.3)
[2019-07-05 16:22] LABS: Troponin I 0.034 NG/ML (0.00-0.045)
[2019-07-05 16:24] LABS: Lymphocytes 16 % (20-55); Segmented Neutrophils 59 % (50-85); Total Cells Counted 100
[2019-07-05 16:25] LABS: Anisocytosis Slight; Stomatocytes Few
[2019-07-05 16:26] LABS: Platelet Estimate Adequate; Polychromasia Slight
[2019-07-05] MEDS ORDERED: ASPIRIN 325 MG TABLET PO STA (17:41)
[2019-07-05] MEDS: NITROGLYCERIN SL 0.4 MG TABLET SL STA ×2 (17:55→18:09)
[2019-07-05] MEDS ORDERED: ONDANSETRON 4 MG/2 ML VIAL IV PRN (18:31)
[2019-07-05] MEDS ORDERED: ACETAMINOPHEN 325 MG TABLET PO PRN (18:31)
[2019-07-05 19:13] LABS: Troponin I 0.037 NG/ML (0.00-0.045)
[2019-07-05] MEDS ORDERED: CLORAZEPATE 3.75 MG TABLET PO PRN (19:54)
[2019-07-05] MEDS ORDERED: NITROGLYCERIN 2% OINT 1 INCH/GM PACK TOP ONE (20:30)
[2019-07-05] MEDS ORDERED: SIMVASTATIN 10 MG TABLET PO SCH (21:00)
[2019-07-05 21:51] LABS: Troponin I 0.045 NG/ML (0.00-0.045)
[2019-07-05] MEDS: INSULIN REGULAR 100 UNIT/ML SUBCUT SCH (22:23)
[2019-07-05] MEDS: MAGNESIUM OXIDE 400 MG TABLET PO SCH (22:24)
[2019-07-05] MEDS: DOCUSATE SODIUM 100 MG CAPSULE PO SCH (22:24)
[2019-07-06 05:34] LABS: Basophils % 0.4 % (0.0-0.8); Eosinophils # 0.1 10*3/uL (0.0-0.87); Eosinophils % 0.7 % (0.00-10.9); Hematocrit 34.9 VOL% (35.7-47.0); Hemoglobin 11.1 GM/DL (12.0-16.0); Immature Granulocytes % 2.2 %; Immature Granulocytes Absolute 0.22 #; Lymphocytes # 1.8 10*3/uL (1.4-4.0); Lymphocytes % 18.2 % (21.3-54.2); Mean Corpuscular HGB Conc 31.8 GM/DL (32-36); Mean Corpuscular Volume 96.7 FL (87-102); Mean Platelet Volume 13.1 FL (9.6-12.0); Monocytes % 35.8 % (1.7-12.7); Neutrophils % 42.7 % (38.7-73.9); Platelet Count 128 T/CUMM (130-400); Red Blood Count 3.61 MC/CUMM (3.8-5.5); Red Cell Distribution Width 15.9 % (9.3-17.3); White Blood Count 10.1 T/CUMM (4-12)
[2019-07-06 05:47] LABS: INR 3.2
[2019-07-06 06:03] LABS: Eosinophils 1 % (0-10); Lymphocytes 20 % (20-55); Segmented Neutrophils 58 % (50-85); Total Cells Counted 100
[2019-07-06 06:25] LABS: Albumin 3.4 G/DL (3.4-5.0); Bilirubin,Total 0.6 MG/DL (0.2-1.0); Calcium 9.4 MG/DL (8.5-10.1); Osmolality,Calculated 288.5 MOS/KG (273-304); Risk Ratio 5.33; Thyroid Stimulating Hormone 1.58 uIU/ml (0.358-3.74); VLDL CHOLESTEROL 52.2 MG/DL
[2019-07-06] MEDS ORDERED: PANTOPRAZOLE 40 MG TABLET PO SCH (09:00)
[2019-07-06] MEDS ORDERED: SPIRONOLACTONE 25 MG TABLET PO SCH (09:00)
[2019-07-06] MEDS ORDERED: SERTRALINE 50 MG TABLET PO SCH (09:00)
[2019-07-06] MEDS ORDERED: ASPIRIN EC 81 MG TABLET PO SCH (09:00)
[2019-07-06] MEDS ORDERED: FUROSEMIDE 20 MG/2 ML VIAL IV SCH (09:00)
[2019-07-06] MEDS ORDERED: AMIODARONE 200 MG TABLET PO SCH (09:00)
[2019-07-06] MEDS ORDERED: ACETAMINOPHEN 325 MG TABLET PO SCH (09:30)
[2019-07-06] MEDS: MAGNESIUM OXIDE 400 MG TABLET PO SCH (10:23)
[2019-07-06] MEDS: carvediloL 3.125 MG TABLET PO SCH ×2 (10:24→18:15)
[2019-07-06] MEDS: DOCUSATE SODIUM 100 MG CAPSULE PO SCH (10:24)
[2019-07-06] MEDS: GABAPENTIN 100 MG CAPSULE PO SCH ×2 (10:24→15:00)
[2019-07-06] MEDS: INSULIN REGULAR 100 UNIT/ML SUBCUT SCH ×3 (10:25→18:14)
[2019-07-06] MEDS ORDERED: DIGOXIN 0.125 MG TABLET PO SCH (13:00)
[2019-07-06 17:12] VITALS: BP 132/74
[2019-07-06] MEDS ORDERED: WARFARIN 5 MG TABLET PO SCH (20:44)
[2019-07-07] MEDS ORDERED: LISINOPRIL 2.5 MG TABLET PO SCH (09:00)
[2019-07-07] MEDS ORDERED: FUROSEMIDE 40 MG TABLET PO SCH (09:00)
[2019-07-07] MEDS ORDERED: WARFARIN 7.5 MG TABLET PO SCH (20:00)
[2019-07-08] MEDS ORDERED: WARFARIN 5 MG TABLET PO SCH ×2 (18:00)
[2019-07-09] MEDS ORDERED: WARFARIN 7.5 MG TABLET PO SCH (18:00)
== END 2019-07-06 18:30 | disposition home or self-care (01) ==
LOC: N.ED 14:37 → N.EDINP 14:37 → N.TELES 18:30
PROVIDERS: ADMIT Family Medicine; ATTEND Family Medicine

== ENCOUNTER 2021-05-29 05:43 | Inpatient (IN) ==
[2021-05-23 11:42] LABS: Basophils % 0.4 % (0.0-0.8); Eosinophils % 0.4 % (0.00-10.9); Hematocrit 37.4 VOL% (35.7-47.0); Hemoglobin 11.9 GM/DL (12.0-16.0); Immature Granulocytes % 1.6 %; Immature Granulocytes Absolute 0.08 #; Lymphocytes % 20.4 % (21.3-54.2); Mean Corpuscular HGB Conc 31.8 GM/DL (32-36); Mean Corpuscular Volume 94.9 FL (87-102); Mean Platelet Volume 13.1 FL (9.6-12.0); Monocytes % 26.8 % (1.7-12.7); Neutrophils % 50.4 % (38.7-73.9); Platelet Count 153 T/CUMM (130-400); Red Blood Count 3.94 MC/CUMM (3.8-5.5); Red Cell Distribution Width 15.7 % (9.3-17.3)
[2021-05-23 11:49] LABS: Bilirubin,Urine Negative (Negative); Blood, Urine Negative (Negative); Glucose,Urine (UA) Negative (Negative); Ketones,Urine Negative (Negative); Mucus,Urine Occasional /LPF (Occasional); Nitrite,Urine Negative (Negative); Protein,Urine Negative; RBC,Urine 1 /HPF (0-4); Squamous Epithelial Cell,Urine Occasional /HPF (0-10); Urine Appearance CLEAR (Clear); Urine Color Straw (Yellow); Urine Specific Gravity 1.008 (1.001-1.035); Urine Urobilinogen < 2.0 EU/DL (0.2-1.0)
[2021-05-23 11:51] LABS: INR 2.8; PT Patient Result 29.4 SECS (10.5-12.0); Partial Thromboplastin Time 37.9 SECS (23.9-33.8)
[2021-05-23 12:03] LABS: Hypochromasia 1+; Lymphocytes 20 % (20-55); Microcytosis 1+; Platelet Estimate Adequate; Segmented Neutrophils 50 % (50-85); Total Cells Counted 100
[2021-05-23 12:27] LABS: Albumin 4.1 G/DL (3.4-5.0); Bilirubin,Total 0.6 MG/DL (0.20-1.00); Calcium 9.9 MG/DL (8.5-10.1); Osmolality,Calculated 288.7 MOS/KG (273-304); Potassium 5.3 MMOL/L (3.5-5.1); Total Protein 7.9 G/DL (6.4-8.2)
[2021-05-29] MEDS ORDERED: GABAPENTIN 400 MG CAPSULE PO ONE (06:40)
[2021-05-29] MEDS ORDERED: FAMOTIDINE 20 MG TABLET PO ONE (06:40)
[2021-05-29] MEDS ORDERED: ACETAMINOPHEN 500 MG TABLET PO ONE (06:40)
[2021-05-29] MEDS ORDERED: ETOMIDATE 40 MG/20 ML VIAL IV ONE (06:57)
[2021-05-29] MEDS ORDERED: LIDOCAINE 2% 5 ML VIAL ONE (06:57)
[2021-05-29] MEDS ORDERED: fentaNYL 100 MCG/2 ML VIAL ONE (06:57)
[2021-05-29] MEDS ORDERED: MIDAZOLAM 2 MG/2 ML VIAL ONE (06:57)
[2021-05-29] MEDS ORDERED: propofoL 200 MG/20 ML VIAL IV ONE (06:57)
[2021-05-29] MEDS ORDERED: ROCURONIUM 50 MG/5 ML VIAL IV ONE (06:58)
[2021-05-29] MEDS ORDERED: LACTATED RINGERS 1,000 ML IV SCH (07:00)
[2021-05-29] MEDS ORDERED: VANCOMYCIN INJ 1,000 MG in SODIUM CHLORIDE 0.9% 250 ML IV ONE (07:00)
[2021-05-29 07:06] LABS: INR 1.5; PT Patient Result 16.7 SECS (10.5-12.0); Partial Thromboplastin Time 31.9 SECS (23.9-33.8)
[2021-05-29] MEDS ORDERED: BUPIVACAINE MPF 0.25% 30 ML VIAL ONE (07:10)
[2021-05-29] MEDS ORDERED: LIDOCAINE 1% 5 ML VIAL ONE (07:11)
[2021-05-29] MEDS ORDERED: DEXAMETHASONE 4 MG/1 ML VIAL ONE ×2 (07:11→09:29)
[2021-05-29] MEDS ORDERED: ONDANSETRON 4 MG/2 ML VIAL IV PRN (08:44)
[2021-05-29] MEDS ORDERED: PROMETHAZINE 25 MG/1 ML VIAL IM PRN (08:44)
[2021-05-29] MEDS ORDERED: LACTULOSE 20 GM/30 ML UDCUP PO PRN (08:44)
[2021-05-29] MEDS ORDERED: TEMAZEPAM 7.5 MG CAPSULE PO PRN (08:44)
[2021-05-29] MEDS ORDERED: MORPHINE 2 MG/1 ML SYRINGE IV PRN ×2 (08:44→11:07)
[2021-05-29] MEDS ORDERED: BISACODYL 10 MG SUPP RECTAL PRN (08:44)
[2021-05-29] MEDS ORDERED: diphenhydrAMINE CAP 25 MG CAPSULE PO PRN (08:44)
[2021-05-29] MEDS ORDERED: DEXTROSE 50% 25 GM/50 ML VIAL IV PRN ×2 (08:47→17:47)
[2021-05-29] MEDS ORDERED: GLUCAGON 1 MG VIAL IM PRN ×2 (08:47→17:47)
[2021-05-29] MEDS ORDERED: ePHEDrine 50 MG/ML VIAL ONE (09:27)
[2021-05-29] MEDS ORDERED: SODIUM CHLORIDE 0.9% 1,000 ML IV ONE (09:34)
[2021-05-29] MEDS ORDERED: GLYCOPYRROLATE 0.4 MG/2 ML VIAL ONE (09:35)
[2021-05-29] MEDS ORDERED: NEOSTIGMINE 10 MG/10 ML VIAL ONE (09:35)
[2021-05-29] MEDS ORDERED: SEVOFLURANE 1 UNIT/15 MINUTE INH ONE (10:11)
[2021-05-29 10:44] LABS: Bilirubin,Urine Negative (Negative); Blood, Urine Negative (Negative); Glucose,Urine (UA) Negative (Negative); Hyaline Casts,Urine 3 /LPF (0-3); Ketones,Urine Negative (Negative); Mucus,Urine Occasional /LPF (Occasional); Nitrite,Urine Negative (Negative); Protein,Urine Negative; RBC,Urine 1 /HPF (0-4); Urine Appearance CLEAR (Clear); Urine Color Yellow (Yellow); Urine Specific Gravity 1.015 (1.001-1.035); Urine Urobilinogen < 2.0 EU/DL (0.2-1.0)
[2021-05-29] MEDS: INSULIN REGULAR 100 UNIT/ML SUBCUT SCH ×3 (14:42→21:58)
[2021-05-29] MEDS: ceFAZolin 2,000 MG/50 ML DUPLEX IV SCH (16:33)
[2021-05-29] MEDS: SPIRONOLACTONE 25 MG TABLET PO SCH (18:30)
[2021-05-29] MEDS: AMIODARONE 200 MG TABLET PO SCH (18:30)
[2021-05-29] MEDS: DOCUSATE SODIUM 100 MG CAPSULE PO SCH ×2 (18:30→20:51)
[2021-05-29] MEDS: ASPIRIN EC 81 MG TABLET PO SCH (18:30)
[2021-05-29] MEDS: carvediloL 3.125 MG TABLET PO SCH ×2 (18:30→20:51)
[2021-05-29] MEDS: SERTRALINE 50 MG TABLET PO SCH (18:31)
[2021-05-29] MEDS: FUROSEMIDE 20 MG TABLET PO SCH (18:31)
[2021-05-29] MEDS: lisinopriL 2.5 MG TABLET PO SCH (18:31)
[2021-05-29] MEDS: DIGOXIN 0.125 MG TABLET PO SCH (18:31)
[2021-05-29] MEDS: SIMVASTATIN 10 MG TABLET PO SCH (20:51)
[2021-05-29] MEDS: MAGNESIUM OXIDE 400 MG TABLET PO SCH (20:51)
[2021-05-30] MEDS: ceFAZolin 2,000 MG/50 ML DUPLEX IV SCH (01:07)
[2021-05-30 05:16] LABS: Basophils % 0.1 % (0.0-0.8); Hematocrit 25.5 VOL% (35.7-47.0); Immature Granulocytes % 1.9 %; Immature Granulocytes Absolute 0.45 #; Lymphocytes # 1.5 10*3/uL (1.4-4.0); Lymphocytes % 6.3 % (21.3-54.2); Mean Corpuscular HGB Conc 31.4 GM/DL (32-36); Mean Corpuscular Volume 96.6 FL (87-102); Mean Platelet Volume 13.8 FL (9.6-12.0); Monocytes % 48.8 % (1.7-12.7); Neutrophils % 42.9 % (38.7-73.9); Platelet Count 168 T/CUMM (130-400); Red Blood Count 2.64 MC/CUMM (3.8-5.5); White Blood Count 23.8 T/CUMM (4-12)
[2021-05-30 05:43] LABS: Hypochromasia 1+; Lymphocytes 3 % (20-55); Microcytosis 1+; Platelet Estimate Adequate; Segmented Neutrophils 44 % (50-85); Total Cells Counted 100
[2021-05-30 05:56] LABS: Calcium 8.3 MG/DL (8.5-10.1); Potassium 5.3 MMOL/L (3.5-5.1)
[2021-05-30] MEDS: MULTIVITAMIN (CENTRUM) TABLET PO SCH (08:15)
[2021-05-30] MEDS: SERTRALINE 50 MG TABLET PO SCH (08:15)
[2021-05-30] MEDS: INSULIN REGULAR 100 UNIT/ML SUBCUT SCH ×4 (08:15→21:07)
[2021-05-30] MEDS: MAGNESIUM OXIDE 400 MG TABLET PO SCH ×2 (08:15→20:54)
[2021-05-30] MEDS: CALCIUM (CARBONATE)/VITAMIN D 600 MG-400 UNIT TABLET PO SCH (08:16)
[2021-05-30] MEDS: AMIODARONE 200 MG TABLET PO SCH (08:16)
[2021-05-30] MEDS: ASPIRIN EC 81 MG TABLET PO SCH (08:16)
[2021-05-30] MEDS: DOCUSATE SODIUM 100 MG CAPSULE PO SCH ×2 (08:16→20:54)
[2021-05-30] MEDS ORDERED: SODIUM CHLORIDE 0.9% 1,000 ML IV PRN (08:48)
[2021-05-30] MEDS ORDERED: WARFARIN 5 MG TABLET PO SCH (09:00)
[2021-05-30] MEDS: FUROSEMIDE 20 MG TABLET PO SCH (09:15)
[2021-05-30] MEDS: lisinopriL 2.5 MG TABLET PO SCH (09:15)
[2021-05-30] MEDS: SPIRONOLACTONE 25 MG TABLET PO SCH (09:15)
[2021-05-30] MEDS: carvediloL 3.125 MG TABLET PO SCH ×2 (09:15→21:06)
[2021-05-30] MEDS: ACETAMINOPHEN 325 MG TABLET PO PRN (12:02)
[2021-05-30] MEDS ORDERED: FUROSEMIDE 20 MG/2 ML VIAL IV ONE (14:15)
[2021-05-30 16:31] LABS: Calcium 8.4 MG/DL (8.5-10.1); Osmolality,Calculated 286.2 MOS/KG (273-304)
[2021-05-30] MEDS: SIMVASTATIN 10 MG TABLET PO SCH (20:54)
[2021-05-31] MEDS: ACETAMINOPHEN 325 MG TABLET PO PRN (04:01)
[2021-05-31 05:18] LABS: Basophils % 0.1 % (0.0-0.8); Hematocrit 27.1 VOL% (35.7-47.0); Hemoglobin 8.7 GM/DL (12.0-16.0); Immature Granulocytes % 1.7 %; Immature Granulocytes Absolute 0.42 #; Lymphocytes # 1.2 10*3/uL (1.4-4.0); Lymphocytes % 4.9 % (21.3-54.2); Mean Corpuscular HGB Conc 32.1 GM/DL (32-36); Mean Corpuscular Volume 95.8 FL (87-102); Mean Platelet Volume 13.8 FL (9.6-12.0); Monocytes % 51.1 % (1.7-12.7); Neutrophils % 42.2 % (38.7-73.9); Platelet Count 117 T/CUMM (130-400); Red Blood Count 2.83 MC/CUMM (3.8-5.5); Red Cell Distribution Width 16.1 % (9.3-17.3); White Blood Count 24.7 T/CUMM (4-12)
[2021-05-31 05:32] LABS: Calcium 8.7 MG/DL (8.5-10.1); Osmolality,Calculated 286.2 MOS/KG (273-304); Potassium 5.1 MMOL/L (3.5-5.1)
[2021-05-31 05:41] LABS: Band Neutrophils 4 % (0-10); Lymphocytes 8 % (20-55); Microcytosis 1+; Segmented Neutrophils 52 % (50-85); Total Cells Counted 100
[2021-05-31 05:42] LABS: Platelet Estimate Adequate; Polychromasia Slight
[2021-05-31] MEDS: DOCUSATE SODIUM 100 MG CAPSULE PO SCH ×2 (08:23→21:25)
[2021-05-31] MEDS: MAGNESIUM OXIDE 400 MG TABLET PO SCH ×2 (08:23→21:25)
[2021-05-31] MEDS: MULTIVITAMIN (CENTRUM) TABLET PO SCH (08:23)
[2021-05-31] MEDS: AMIODARONE 200 MG TABLET PO SCH (08:23)
[2021-05-31] MEDS: CALCIUM (CARBONATE)/VITAMIN D 600 MG-400 UNIT TABLET PO SCH (08:23)
[2021-05-31] MEDS: carvediloL 3.125 MG TABLET PO SCH (08:23)
[2021-05-31] MEDS: ASPIRIN EC 81 MG TABLET PO SCH (08:23)
[2021-05-31] MEDS: SERTRALINE 50 MG TABLET PO SCH (08:23)
[2021-05-31] MEDS: DIGOXIN 0.125 MG TABLET PO SCH (08:23)
[2021-05-31] MEDS: FUROSEMIDE 20 MG TABLET PO SCH (08:23)
[2021-05-31] MEDS: INSULIN REGULAR 100 UNIT/ML SUBCUT SCH ×4 (08:24→21:25)
[2021-05-31] MEDS ORDERED: WARFARIN 7.5 MG TABLET PO SCH (08:47)
[2021-05-31] MEDS ORDERED: CLORAZEPATE 3.75 MG TABLET PO PRN (10:01)
[2021-05-31] MEDS: SODIUM CHLORIDE 0.9% 1,000 ML IV SCH ×3 (14:33→23:18)
[2021-05-31] MEDS: MAGNESIUM HYDROXIDE SUSP 30 ML UDCUP PO PRN (17:21)
[2021-05-31] MEDS: SIMVASTATIN 10 MG TABLET PO SCH (21:25)
[2021-06-01] MEDS: SODIUM CHLORIDE 0.9% 1,000 ML IV SCH ×2 (03:25→05:43)
[2021-06-01 05:11] LABS: Hematocrit 23.9 VOL% (35.7-47.0); Hemoglobin 7.6 GM/DL (12.0-16.0); Immature Granulocytes % 2.2 %; Immature Granulocytes Absolute 0.45 #; Lymphocytes # 1.1 10*3/uL (1.4-4.0); Lymphocytes % 5.1 % (21.3-54.2); Mean Corpuscular HGB Conc 31.8 GM/DL (32-36); Mean Corpuscular Volume 95.2 FL (87-102); Mean Platelet Volume 14.1 FL (9.6-12.0); Monocytes % 47.6 % (1.7-12.7); NRBC # 0.02 10*3/uL; Neutrophils % 45.1 % (38.7-73.9); Platelet Count 109 T/CUMM (130-400); Red Blood Count 2.51 MC/CUMM (3.8-5.5); Red Cell Distribution Width 15.9 % (9.3-17.3); White Blood Count 20.7 T/CUMM (4-12)
[2021-06-01 05:29] LABS: INR 1.3; PT Patient Result 14.4 SECS (10.5-12.0)
[2021-06-01 05:38] LABS: Band Neutrophils 1 % (0-10); Hypochromasia 1+; Lymphocytes 5 % (20-55); Platelet Estimate Normal; Segmented Neutrophils 58 % (50-85); Total Cells Counted 100
[2021-06-01] MEDS: INSULIN REGULAR 100 UNIT/ML SUBCUT SCH ×4 (08:27→20:33)
[2021-06-01] MEDS: CALCIUM (CARBONATE)/VITAMIN D 600 MG-400 UNIT TABLET PO SCH (08:27)
[2021-06-01] MEDS: MAGNESIUM OXIDE 400 MG TABLET PO SCH ×2 (08:27→20:26)
[2021-06-01] MEDS: MULTIVITAMIN (CENTRUM) TABLET PO SCH (08:27)
[2021-06-01] MEDS: ASPIRIN EC 81 MG TABLET PO SCH (08:27)
[2021-06-01] MEDS: MAGNESIUM HYDROXIDE SUSP 30 ML UDCUP PO PRN (08:27)
[2021-06-01] MEDS: AMIODARONE 200 MG TABLET PO SCH (08:27)
[2021-06-01] MEDS: SERTRALINE 50 MG TABLET PO SCH (08:27)
[2021-06-01] MEDS: DOCUSATE SODIUM 100 MG CAPSULE PO SCH ×2 (08:27→20:26)
[2021-06-01] MEDS ORDERED: SODIUM CHLORIDE 0.9% 1,000 ML IV PRN (08:32)
[2021-06-01] MEDS: SIMVASTATIN 10 MG TABLET PO SCH (20:26)
[2021-06-02 05:18] LABS: INR 1.2; PT Patient Result 13.8 SECS (10.5-12.0)
[2021-06-02] MEDS: INSULIN REGULAR 100 UNIT/ML SUBCUT SCH ×4 (07:14→21:07)
[2021-06-02 07:29] LABS: Hematocrit 27.4 VOL% (35.7-47.0); Hemoglobin 8.6 GM/DL (12.0-16.0)
[2021-06-02 08:17] LABS: Calcium 9.1 MG/DL (8.5-10.1); Osmolality,Calculated 292.4 MOS/KG (273-304); Potassium 4.5 MMOL/L (3.5-5.1)
[2021-06-02] MEDS: DIGOXIN 0.125 MG TABLET PO SCH (09:01)
[2021-06-02] MEDS: SERTRALINE 50 MG TABLET PO SCH (09:01)
[2021-06-02] MEDS: AMIODARONE 200 MG TABLET PO SCH (09:01)
[2021-06-02] MEDS: MULTIVITAMIN (CENTRUM) TABLET PO SCH (09:01)
[2021-06-02] MEDS: CALCIUM (CARBONATE)/VITAMIN D 600 MG-400 UNIT TABLET PO SCH (09:01)
[2021-06-02] MEDS: DOCUSATE SODIUM 100 MG CAPSULE PO SCH ×2 (09:01→21:06)
[2021-06-02] MEDS: ASPIRIN EC 81 MG TABLET PO SCH (09:01)
[2021-06-02] MEDS: MAGNESIUM OXIDE 400 MG TABLET PO SCH ×2 (09:01→21:07)
[2021-06-02] MEDS: SIMVASTATIN 10 MG TABLET PO SCH (21:06)
[2021-06-03 04:56] LABS: Basophils % 0.3 % (0.0-0.8); Eosinophils # 0.1 10*3/uL (0.0-0.87); Eosinophils % 0.7 % (0.00-10.9); Hematocrit 28.3 VOL% (35.7-47.0); Hematocrit 28.6 VOL% (35.7-47.0); Hemoglobin 8.9 GM/DL (12.0-16.0); Hemoglobin 9.1 GM/DL (12.0-16.0); Immature Granulocytes % 2.9 %; Immature Granulocytes Absolute 0.31 #; Lymphocytes % 9.2 % (21.3-54.2); Mean Corpuscular HGB Conc 31.8 GM/DL (32-36); Mean Corpuscular Volume 94.4 FL (87-102); Mean Platelet Volume 14.4 FL (9.6-12.0); Monocytes % 37.2 % (1.7-12.7); Neutrophils % 49.7 % (38.7-73.9); Platelet Count 120 T/CUMM (130-400); Red Blood Count 3.03 MC/CUMM (3.8-5.5); White Blood Count 10.8 T/CUMM (4-12)
[2021-06-03 05:09] LABS: INR 1.2; PT Patient Result 13.2 SECS (10.5-12.0)
[2021-06-03 05:16] LABS: Calcium 9.1 MG/DL (8.5-10.1); Osmolality,Calculated 287.5 MOS/KG (273-304); Potassium 4.7 MMOL/L (3.5-5.1)
[2021-06-03 05:23] LABS: Eosinophils 1 % (0-10); Lymphocytes 16 % (20-55); Platelet Estimate Normal; Segmented Neutrophils 58 % (50-85)
[2021-06-03 05:24] LABS: Total Cells Counted 100
[2021-06-03] MEDS: INSULIN REGULAR 100 UNIT/ML SUBCUT SCH ×4 (07:19→21:47)
[2021-06-03] MEDS: MAGNESIUM OXIDE 400 MG TABLET PO SCH ×2 (08:27→20:46)
[2021-06-03] MEDS: SERTRALINE 50 MG TABLET PO SCH (08:27)
[2021-06-03] MEDS: ASPIRIN EC 81 MG TABLET PO SCH (08:27)
[2021-06-03] MEDS: CALCIUM (CARBONATE)/VITAMIN D 600 MG-400 UNIT TABLET PO SCH (08:27)
[2021-06-03] MEDS: AMIODARONE 200 MG TABLET PO SCH (08:27)
[2021-06-03] MEDS: MULTIVITAMIN (CENTRUM) TABLET PO SCH (08:27)
[2021-06-03] MEDS: DOCUSATE SODIUM 100 MG CAPSULE PO SCH ×2 (08:27→20:45)
[2021-06-03] MEDS: ACETAMINOPHEN 325 MG TABLET PO PRN (14:40)
[2021-06-03] MEDS: SIMVASTATIN 10 MG TABLET PO SCH (20:46)
[2021-06-04 05:35] LABS: Hemoglobin 8.9 GM/DL (12.0-16.0)
[2021-06-04 05:46] LABS: INR 1.1; PT Patient Result 12.7 SECS (10.5-12.0)
[2021-06-04] MEDS: INSULIN REGULAR 100 UNIT/ML SUBCUT SCH ×4 (07:35→21:39)
[2021-06-04] MEDS: CALCIUM (CARBONATE)/VITAMIN D 600 MG-400 UNIT TABLET PO SCH (08:44)
[2021-06-04] MEDS: SERTRALINE 50 MG TABLET PO SCH (08:44)
[2021-06-04] MEDS: ASPIRIN EC 81 MG TABLET PO SCH (08:44)
[2021-06-04] MEDS: MULTIVITAMIN (CENTRUM) TABLET PO SCH (08:44)
[2021-06-04] MEDS: DOCUSATE SODIUM 100 MG CAPSULE PO SCH ×2 (08:44→20:44)
[2021-06-04] MEDS: MAGNESIUM OXIDE 400 MG TABLET PO SCH ×2 (08:44→20:44)
[2021-06-04] MEDS: AMIODARONE 200 MG TABLET PO SCH (08:45)
[2021-06-04] MEDS: SIMVASTATIN 10 MG TABLET PO SCH (20:44)
[2021-06-05 05:22] LABS: INR 1.1; PT Patient Result 12.8 SECS (10.5-12.0)
[2021-06-05] MEDS: SERTRALINE 50 MG TABLET PO SCH (09:10)
[2021-06-05] MEDS: DIGOXIN 0.125 MG TABLET PO SCH (09:10)
[2021-06-05] MEDS: DOCUSATE SODIUM 100 MG CAPSULE PO SCH (09:10)
[2021-06-05] MEDS: CALCIUM (CARBONATE)/VITAMIN D 600 MG-400 UNIT TABLET PO SCH (09:10)
[2021-06-05] MEDS: MAGNESIUM OXIDE 400 MG TABLET PO SCH (09:11)
[2021-06-05] MEDS: ASPIRIN EC 81 MG TABLET PO SCH (09:11)
[2021-06-05] MEDS: AMIODARONE 200 MG TABLET PO SCH (09:11)
[2021-06-05] MEDS: MULTIVITAMIN (CENTRUM) TABLET PO SCH (09:11)
[2021-06-05] MEDS: INSULIN REGULAR 100 UNIT/ML SUBCUT SCH ×2 (09:14→12:01)
[2021-06-05] MEDS ORDERED: ALUMINUM/MAGNES/SIMETH MAX STR 30 ML UDCUP PO PRN (11:42)
[2021-06-05 11:53] VITALS: BP 122/55
== END 2021-06-05 14:09 | disposition swing bed (61) | DRG 470 ==
LOC: N.OR 05:43 → N.SDSINP 05:46 → EDSTATUS 10:00 → N.3E 17:15
PROVIDERS: ADMIT Orthopaedic Surgery; ATTEND Orthopaedic Surgery

== ENCOUNTER 2021-07-28 07:57 | Inpatient (IN) ==
[2021-07-28 11:07] LABS: Basophils % 0.2 % (0.0-0.8); Eosinophils % 0.4 % (0.00-10.9); Hematocrit 34.4 VOL% (35.7-47.0); Hemoglobin 10.7 GM/DL (12.0-16.0); Immature Granulocytes % 1.3 %; Immature Granulocytes Absolute 0.07 #; Lymphocytes # 0.9 10*3/uL (1.4-4.0); Lymphocytes % 15.9 % (21.3-54.2); Mean Corpuscular HGB Conc 31.1 GM/DL (32-36); Mean Corpuscular Volume 98.3 FL (87-102); Mean Platelet Volume 12.9 FL (9.6-12.0); Monocytes % 35.5 % (1.7-12.7); Neutrophils % 46.7 % (38.7-73.9); Platelet Count 134 T/CUMM (130-400); Red Cell Distribution Width 15.9 % (9.3-17.3); White Blood Count 5.4 T/CUMM (4-12)
[2021-07-28 11:16] LABS: PT Patient Result 21.3 SECS (10.5-12.0)
[2021-07-28 11:23] LABS: Albumin 3.5 G/DL (3.4-5.0); Bilirubin,Total 0.6 MG/DL (0.20-1.00); Calcium 9.4 MG/DL (8.5-10.1); Osmolality,Calculated 290.4 MOS/KG (273-304); Total Protein 7.5 G/DL (6.4-8.2)
[2021-07-28] MEDS ORDERED: ONDANSETRON 4 MG/2 ML VIAL IV PRN (11:26)
[2021-07-28] MEDS ORDERED: CLORAZEPATE 3.75 MG TABLET PO PRN (11:29)
[2021-07-28 11:30] LABS: Anisocytosis 1+; Band Neutrophils 3 % (0-10); Eosinophils 1 % (0-10); Lymphocytes 17 % (20-55); Platelet Estimate Adequate; Segmented Neutrophils 47 % (50-85); Total Cells Counted 100
[2021-07-28 11:31] LABS: Macrocytosis Slight
[2021-07-28] MEDS ORDERED: GLUCAGON 1 MG VIAL IM PRN (17:55)
[2021-07-28] MEDS ORDERED: DEXTROSE 50% 25 GM/50 ML SYRINGE IV PRN (18:03)
[2021-07-28] MEDS: ACETAMINOPHEN 325 MG TABLET PO PRN (20:28)
[2021-07-28] MEDS: DOCUSATE SODIUM 100 MG CAPSULE PO SCH (20:28)
[2021-07-28] MEDS: MAGNESIUM OXIDE 400 MG TABLET PO SCH (20:28)
[2021-07-28] MEDS: carvediloL 3.125 MG TABLET PO SCH (20:28)
[2021-07-28] MEDS: SIMVASTATIN 10 MG TABLET PO SCH (20:28)
[2021-07-28] MEDS: SERTRALINE 50 MG TABLET PO SCH (20:28)
[2021-07-29 06:09] LABS: Basophils % 0.2 % (0.0-0.8); Eosinophils % 0.6 % (0.00-10.9); Hematocrit 34.3 VOL% (35.7-47.0); Hemoglobin 10.3 GM/DL (12.0-16.0); Immature Granulocytes % 1.5 %; Immature Granulocytes Absolute 0.07 #; Lymphocytes % 21.3 % (21.3-54.2); Mean Corpuscular Volume 99.4 FL (87-102); Mean Platelet Volume 13.3 FL (9.6-12.0); Monocytes % 39.5 % (1.7-12.7); Neutrophils % 36.9 % (38.7-73.9); Platelet Count 131 T/CUMM (130-400); Red Blood Count 3.45 MC/CUMM (3.8-5.5); White Blood Count 4.8 T/CUMM (4-12)
[2021-07-29 06:18] LABS: INR 2.4; PT Patient Result 24.7 SECS (10.5-12.0)
[2021-07-29 06:30] LABS: Calcium 9.3 MG/DL (8.5-10.1); Osmolality,Calculated 284.4 MOS/KG (273-304); Potassium 4.3 MMOL/L (3.5-5.1)
[2021-07-29 06:33] LABS: Hypochromasia 1+; Lymphocytes 26 % (20-55); Microcytosis 1+; Platelet Estimate Adequate; Segmented Neutrophils 36 % (50-85); Total Cells Counted 100
[2021-07-29] MEDS: MULTIVITAMIN (CENTRUM) TABLET PO SCH (08:23)
[2021-07-29] MEDS: MAGNESIUM OXIDE 400 MG TABLET PO SCH ×2 (08:23→20:12)
[2021-07-29] MEDS: FUROSEMIDE 40 MG TABLET PO SCH (08:23)
[2021-07-29] MEDS: PANTOPRAZOLE 40 MG TABLET PO SCH (08:23)
[2021-07-29] MEDS: AMIODARONE 200 MG TABLET PO SCH (08:23)
[2021-07-29] MEDS: oxyCODONE/ACETAMINOPHEN 5-325 MG TABLET PO PRN ×2 (08:24→20:59)
[2021-07-29] MEDS: DOCUSATE SODIUM 100 MG CAPSULE PO SCH ×2 (08:26→20:12)
[2021-07-29] MEDS: carvediloL 3.125 MG TABLET PO SCH ×2 (08:26→20:12)
[2021-07-29] MEDS: MORPHINE 2 MG/1 ML SYRINGE IV PRN ×2 (11:44→22:41)
[2021-07-29] MEDS: SIMVASTATIN 10 MG TABLET PO SCH (20:12)
[2021-07-29] MEDS: SERTRALINE 50 MG TABLET PO SCH (20:12)
[2021-07-30] MEDS: MORPHINE 2 MG/1 ML SYRINGE IV PRN ×2 (03:24→08:15)
[2021-07-30 06:10] LABS: Basophils % 0.1 % (0.0-0.8); Eosinophils % 0.2 % (0.00-10.9); Hematocrit 34.9 VOL% (35.7-47.0); Hemoglobin 10.7 GM/DL (12.0-16.0); Immature Granulocytes % 2.1 %; Immature Granulocytes Absolute 0.17 #; Lymphocytes # 0.9 10*3/uL (1.4-4.0); Lymphocytes % 10.8 % (21.3-54.2); Mean Corpuscular HGB Conc 30.7 GM/DL (32-36); Mean Corpuscular Volume 98.9 FL (87-102); Mean Platelet Volume 13.8 FL (9.6-12.0); Monocytes % 47.8 % (1.7-12.7); Platelet Count 135 T/CUMM (130-400); Red Blood Count 3.53 MC/CUMM (3.8-5.5)
[2021-07-30 06:14] LABS: INR 1.8; PT Patient Result 18.9 SECS (10.5-12.0)
[2021-07-30 06:23] LABS: Calcium 9.4 MG/DL (8.5-10.1); Osmolality,Calculated 283.5 MOS/KG (273-304); Potassium 5.4 MMOL/L (3.5-5.1)
[2021-07-30 06:39] LABS: Band Neutrophils 2 % (0-10); Hypochromasia 1+; Lymphocytes 15 % (20-55); Microcytosis 1+; Platelet Estimate Normal; Segmented Neutrophils 41 % (50-85); Total Cells Counted 100
[2021-07-30] MEDS ORDERED: MORPHINE 2 MG/1 ML SYRINGE IV PRN (10:14)
[2021-07-30] MEDS: DEXTROSE 5% NACL 0.45% 1,000 ML IV SCH ×2 (11:23→20:51)
[2021-07-30] MEDS: DOCUSATE SODIUM 100 MG CAPSULE PO SCH ×2 (11:25→20:54)
[2021-07-30] MEDS: MAGNESIUM OXIDE 400 MG TABLET PO SCH ×2 (11:25→20:52)
[2021-07-30] MEDS: carvediloL 3.125 MG TABLET PO SCH ×2 (11:26→20:52)
[2021-07-30] MEDS: FUROSEMIDE 40 MG TABLET PO SCH (11:26)
[2021-07-30] MEDS: MULTIVITAMIN (CENTRUM) TABLET PO SCH (11:26)
[2021-07-30] MEDS: AMIODARONE 200 MG TABLET PO SCH (11:26)
[2021-07-30] MEDS: PANTOPRAZOLE 40 MG TABLET PO SCH (11:26)
[2021-07-30] MEDS: oxyCODONE/ACETAMINOPHEN 5-325 MG TABLET PO PRN ×2 (16:51→20:52)
[2021-07-30] MEDS: SIMVASTATIN 10 MG TABLET PO SCH (20:52)
[2021-07-30] MEDS: SERTRALINE 50 MG TABLET PO SCH (20:52)
[2021-07-31 06:22] LABS: INR 1.5; PT Patient Result 15.8 SECS (10.5-12.0)
[2021-07-31] MEDS: DEXTROSE 5% NACL 0.45% 1,000 ML IV SCH ×2 (07:57→17:44)
[2021-07-31] MEDS ORDERED: FUROSEMIDE 20 MG/2 ML VIAL IV ONE (09:00)
[2021-07-31] MEDS: carvediloL 3.125 MG TABLET PO SCH ×2 (09:11→21:09)
[2021-07-31] MEDS: AMIODARONE 200 MG TABLET PO SCH (09:11)
[2021-07-31] MEDS: DOCUSATE SODIUM 100 MG CAPSULE PO SCH ×2 (10:23→21:09)
[2021-07-31] MEDS: FUROSEMIDE 40 MG TABLET PO SCH (10:23)
[2021-07-31] MEDS: MULTIVITAMIN (CENTRUM) TABLET PO SCH (10:23)
[2021-07-31] MEDS: PANTOPRAZOLE 40 MG TABLET PO SCH (10:23)
[2021-07-31] MEDS: MAGNESIUM OXIDE 400 MG TABLET PO SCH ×2 (10:23→21:09)
[2021-07-31] MEDS ORDERED: VANCOMYCIN INJ 1,000 MG in SODIUM CHLORIDE 0.9% 250 ML IV ONE (10:30)
[2021-07-31] MEDS ORDERED: ceFAZolin 2,000 MG/50 ML DUPLEX IV ONE (10:30)
[2021-07-31] MEDS ORDERED: ROPIVACAINE 0.5% 30 ML VIAL ONE (10:42)
[2021-07-31] MEDS ORDERED: LIDOCAINE 2% 5 ML VIAL ONE ×2 (10:42→10:48)
[2021-07-31] MEDS ORDERED: ROCURONIUM 50 MG/5 ML VIAL IV ONE (10:48)
[2021-07-31] MEDS ORDERED: MIDAZOLAM 2 MG/2 ML VIAL ONE (10:48)
[2021-07-31] MEDS ORDERED: ONDANSETRON 4 MG/2 ML VIAL ONE (10:48)
[2021-07-31] MEDS ORDERED: fentaNYL 100 MCG/2 ML VIAL ONE (10:48)
[2021-07-31] MEDS ORDERED: propofoL 200 MG/20 ML VIAL IV ONE (10:48)
[2021-07-31] MEDS ORDERED: SEVOFLURANE 1 UNIT/15 MINUTE INH ONE (10:48)
[2021-07-31] MEDS ORDERED: LACTATED RINGERS 1,000 ML IV SCH (11:00)
[2021-07-31] MEDS ORDERED: PHENYLEPHRINE 1 MG/10 ML SYRINGE IV ONE (11:23)
[2021-07-31] MEDS ORDERED: MAGNESIUM HYDROXIDE SUSP 30 ML UDCUP PO PRN (11:24)
[2021-07-31] MEDS ORDERED: diphenhydrAMINE CAP 25 MG CAPSULE PO PRN (11:25)
[2021-07-31] MEDS ORDERED: LACTULOSE 20 GM/30 ML UDCUP PO PRN (11:25)
[2021-07-31] MEDS ORDERED: TEMAZEPAM 7.5 MG CAPSULE PO PRN (11:25)
[2021-07-31] MEDS ORDERED: oxyCODONE/ACETAMINOPHEN 5-325 MG TABLET PO PRN (11:25)
[2021-07-31] MEDS ORDERED: BISACODYL 10 MG SUPP RECTAL PRN (11:25)
[2021-07-31] MEDS ORDERED: PROMETHAZINE 25 MG/1 ML VIAL IM PRN (11:25)
[2021-07-31] MEDS ORDERED: MORPHINE 2 MG/1 ML SYRINGE IV PRN ×2 (11:28→12:59)
[2021-07-31] MEDS ORDERED: ACETAMINOPHEN INJ 1,000 MG/100 ML VIAL IV ONE (12:10)
[2021-07-31] MEDS ORDERED: ePHEDrine 50 MG/ML VIAL ONE (12:17)
[2021-07-31] MEDS ORDERED: LACTATED RINGERS 1,000 ML IV ONE (12:56)
[2021-07-31] MEDS ORDERED: GLUCAGON 1 MG VIAL IM PRN (16:24)
[2021-07-31] MEDS ORDERED: DEXTROSE 50% 25 GM/50 ML SYRINGE IV PRN (16:24)
[2021-07-31] MEDS: ceFAZolin 2,000 MG/50 ML DUPLEX IV SCH (17:49)
[2021-07-31] MEDS ORDERED: DOCUSATE SODIUM 100 MG CAPSULE PO SCH (21:00)
[2021-07-31] MEDS ORDERED: WARFARIN 5 MG TABLET PO ONE (21:00)
[2021-07-31] MEDS: ACETAMINOPHEN 325 MG TABLET PO PRN (21:09)
[2021-07-31] MEDS: SIMVASTATIN 10 MG TABLET PO SCH (21:10)
[2021-07-31] MEDS: SERTRALINE 50 MG TABLET PO SCH (21:10)
[2021-08-01] MEDS: DEXTROSE 5% NACL 0.45% 1,000 ML IV SCH ×3 (01:20→16:48)
[2021-08-01] MEDS: ceFAZolin 2,000 MG/50 ML DUPLEX IV SCH (01:22)
[2021-08-01 06:31] LABS: INR 1.4; PT Patient Result 15.4 SECS (10.5-12.0)
[2021-08-01 07:00] LABS: Calcium 8.4 MG/DL (8.5-10.1); Potassium 4.5 MMOL/L (3.5-5.1)
[2021-08-01 07:13] LABS: Basophils % 0.1 % (0.0-0.8); Hematocrit 26.4 VOL% (35.7-47.0); Immature Granulocytes % 1.7 %; Immature Granulocytes Absolute 0.65 #; Lymphocytes % 2.6 % (21.3-54.2); Mean Corpuscular HGB Conc 30.7 GM/DL (32-36); Mean Corpuscular Volume 97.4 FL (87-102); Mean Platelet Volume 13.8 FL (9.6-12.0); Monocytes % 51.5 % (1.7-12.7); NRBC # 0.02 10*3/uL; Neutrophils % 44.1 % (38.7-73.9); Platelet Count 136 T/CUMM (130-400); Red Cell Distribution Width 15.9 % (9.3-17.3)
[2021-08-01 07:14] LABS: Hemoglobin 8.1 GM/DL (12.0-16.0); Red Blood Count 2.71 MC/CUMM (3.8-5.5); White Blood Count 38.9 T/CUMM (4-12)
[2021-08-01 07:31] LABS: Hypochromasia 1+; Lymphocytes 2 % (20-55); Microcytosis 1+; Segmented Neutrophils 56 % (50-85); Total Cells Counted 100
[2021-08-01 08:57] LABS: Total Protein (Chem) 6.9 G/DL (6.4-8.3)
[2021-08-01] MEDS ORDERED: DOCUSATE SODIUM 100 MG CAPSULE PO SCH (09:00)
[2021-08-01] MEDS: MAGNESIUM OXIDE 400 MG TABLET PO SCH ×2 (09:02→20:57)
[2021-08-01] MEDS: DOCUSATE SODIUM 100 MG CAPSULE PO SCH ×2 (09:02→20:57)
[2021-08-01] MEDS: MULTIVITAMIN (CENTRUM) TABLET PO SCH (09:02)
[2021-08-01] MEDS: PANTOPRAZOLE 40 MG TABLET PO SCH (09:02)
[2021-08-01] MEDS: WARFARIN 5 MG TABLET PO SCH (09:03)
[2021-08-01] MEDS: AMIODARONE 200 MG TABLET PO SCH (09:03)
[2021-08-01] MEDS: carvediloL 3.125 MG TABLET PO SCH ×2 (09:03→23:29)
[2021-08-01] MEDS: ASPIRIN EC 81 MG TABLET PO SCH (09:03)
[2021-08-01] MEDS: FUROSEMIDE 40 MG TABLET PO SCH (09:04)
[2021-08-01] MEDS ORDERED: SODIUM CHLORIDE 0.9% 1,000 ML IV PRN (09:22)
[2021-08-01] MEDS ORDERED: MAGNESIUM SULF RIDER 2 GM/50 ML PREMIX IV ONE (09:30)
[2021-08-01] MEDS ORDERED: DEXTROSE 50% 25 GM/50 ML VIAL IV PRN (09:50)
[2021-08-01] MEDS ORDERED: GLUCAGON 1 MG VIAL IM PRN (09:50)
[2021-08-01] MEDS: INSULIN REGULAR 100 UNIT/ML SUBCUT SCH ×3 (11:14→20:57)
[2021-08-01 12:33] LABS: Albumin (SPE) Rel % 58.1 %; Alpha 1 (SPE) 0.2 G/DL (0.1-0.4); Alpha 1 (SPE) Rel % 3.2 %; Alpha 2 (SPE) 0.8 G/DL (0.4-1.0); Beta (SPE) 0.7 G/DL (0.5-1.1); Beta (SPE) Rel % 10.1 %; Gamma (SPE) 1.2 G/DL (0.7-1.7); Gamma (SPE) Rel % 17.6 %
[2021-08-01] MEDS: oxyCODONE/ACETAMINOPHEN 5-325 MG TABLET PO PRN ×2 (16:06→22:39)
[2021-08-01] MEDS: SERTRALINE 50 MG TABLET PO SCH (20:57)
[2021-08-01] MEDS: SIMVASTATIN 10 MG TABLET PO SCH (20:57)
[2021-08-02] MEDS: DEXTROSE 5% NACL 0.45% 1,000 ML IV SCH (02:59)
[2021-08-02 05:33] LABS: Basophils % 0.1 % (0.0-0.8); Eosinophils % 0.1 % (0.00-10.9); Hematocrit 25.7 VOL% (35.7-47.0); Hemoglobin 7.9 GM/DL (12.0-16.0); Immature Granulocytes % 1.7 %; Immature Granulocytes Absolute 0.47 #; Lymphocytes # 1.1 10*3/uL (1.4-4.0); Lymphocytes % 3.8 % (21.3-54.2); Mean Corpuscular HGB Conc 30.7 GM/DL (32-36); Mean Corpuscular Volume 93.8 FL (87-102); Mean Platelet Volume 14.3 FL (9.6-12.0); Monocytes % 48.5 % (1.7-12.7); Neutrophils % 45.8 % (38.7-73.9); Platelet Count 136 T/CUMM (130-400); Red Blood Count 2.74 MC/CUMM (3.8-5.5); Red Cell Distribution Width 18.1 % (9.3-17.3); White Blood Count 28.4 T/CUMM (4-12)
[2021-08-02 05:42] LABS: INR 1.8; PT Patient Result 19.2 SECS (10.5-12.0)
[2021-08-02 05:59] LABS: Band Neutrophils 1 % (0-10); Lymphocytes 3 % (20-55); Segmented Neutrophils 53 % (50-85); Total Cells Counted 100
[2021-08-02 06:00] LABS: Hypochromasia 1+; Microcytosis 1+; Platelet Estimate Adequate
[2021-08-02] MEDS: oxyCODONE/ACETAMINOPHEN 5-325 MG TABLET PO PRN (07:02)
[2021-08-02] MEDS ORDERED: SODIUM CHLORIDE 0.9% 1,000 ML IV PRN (08:08)
[2021-08-02] MEDS: MULTIVITAMIN (CENTRUM) TABLET PO SCH (08:58)
[2021-08-02] MEDS: MAGNESIUM OXIDE 400 MG TABLET PO SCH ×2 (08:58→21:39)
[2021-08-02] MEDS: AMIODARONE 200 MG TABLET PO SCH (08:58)
[2021-08-02] MEDS: ASPIRIN EC 81 MG TABLET PO SCH (08:58)
[2021-08-02] MEDS: PANTOPRAZOLE 40 MG TABLET PO SCH (08:58)
[2021-08-02] MEDS: DOCUSATE SODIUM 100 MG CAPSULE PO SCH ×2 (08:58→21:39)
[2021-08-02] MEDS: carvediloL 3.125 MG TABLET PO SCH ×2 (08:58→21:39)
[2021-08-02] MEDS: WARFARIN 5 MG TABLET PO SCH (08:58)
[2021-08-02] MEDS: FUROSEMIDE 40 MG TABLET PO SCH (08:58)
[2021-08-02] MEDS: INSULIN REGULAR 100 UNIT/ML SUBCUT SCH ×4 (08:59→21:39)
[2021-08-02] MEDS ORDERED: DIGOXIN 0.125 MG TABLET PO SCH (11:30)
[2021-08-02] MEDS: ACETAMINOPHEN 325 MG TABLET PO PRN (15:14)
[2021-08-02 20:00] LABS: Hematocrit 26.1 VOL% (35.7-47.0); Hemoglobin 8.3 GM/DL (12.0-16.0)
[2021-08-02] MEDS: SERTRALINE 50 MG TABLET PO SCH (21:39)
[2021-08-02] MEDS: SIMVASTATIN 10 MG TABLET PO SCH (21:39)
[2021-08-03 05:05] LABS: Basophils % 0.1 % (0.0-0.8); Eosinophils % 0.2 % (0.00-10.9); Hematocrit 26.9 VOL% (35.7-47.0); Hemoglobin 8.4 GM/DL (12.0-16.0); Lymphocytes # 1.1 10*3/uL (1.4-4.0); Lymphocytes % 5.5 % (21.3-54.2); Mean Corpuscular HGB Conc 31.2 GM/DL (32-36); Mean Corpuscular Volume 91.8 FL (87-102); Mean Platelet Volume 13.9 FL (9.6-12.0); Monocytes % 33.2 % (1.7-12.7); Platelet Count 150 T/CUMM (130-400); Red Blood Count 2.93 MC/CUMM (3.8-5.5); Red Cell Distribution Width 17.9 % (9.3-17.3); White Blood Count 19.9 T/CUMM (4-12)
[2021-08-03 05:36] LABS: Band Neutrophils 1 % (0-10); Eosinophils 1 % (0-10); Hypochromasia Slight; Lymphocytes 3 % (20-55); Platelet Estimate Normal; Segmented Neutrophils 71 % (50-85); Total Cells Counted 100
[2021-08-03] MEDS: INSULIN REGULAR 100 UNIT/ML SUBCUT SCH ×2 (08:32→12:04)
[2021-08-03] MEDS: PANTOPRAZOLE 40 MG TABLET PO SCH (08:33)
[2021-08-03] MEDS: MAGNESIUM OXIDE 400 MG TABLET PO SCH (08:33)
[2021-08-03] MEDS: WARFARIN 5 MG TABLET PO SCH (08:33)
[2021-08-03] MEDS: DOCUSATE SODIUM 100 MG CAPSULE PO SCH (08:33)
[2021-08-03] MEDS: MULTIVITAMIN (CENTRUM) TABLET PO SCH (08:33)
[2021-08-03] MEDS: FUROSEMIDE 40 MG TABLET PO SCH (08:33)
[2021-08-03] MEDS: ASPIRIN EC 81 MG TABLET PO SCH (08:33)
[2021-08-03] MEDS: AMIODARONE 200 MG TABLET PO SCH (08:34)
[2021-08-03] MEDS: carvediloL 3.125 MG TABLET PO SCH (08:39)
[2021-08-03] MEDS: oxyCODONE/ACETAMINOPHEN 5-325 MG TABLET PO PRN (08:40)
[2021-08-03] MEDS: ACETAMINOPHEN 325 MG TABLET PO PRN (08:41)
[2021-08-03 11:37] VITALS: BP 100/71
== END 2021-08-03 15:28 | disposition swing bed (61) | DRG 522 ==
LOC: N.ED 07:57 → N.3E 11:26
PROVIDERS: ADMIT Family Medicine; ATTEND Family Medicine